=== PATIENT | male | born 1935 | race Caucasian/White ===

== ENCOUNTER → 2018-06-17 14:51 | Outpatient (CLI) | payer MEDICARE, SELFPAY ==
[2018-06-17 16:09] LABS: Absolute Neutrophil Count 4.2 X10^3/uL (2.0-7.7); Basophil# 0.02 X10^3/uL; Basophil% 0.3 % (0-1); Eosinophil# 0.09 X10^3/uL; Eosinophils% 1.3 % (0-5); Hematocrit 42.2 % (40-54); Hemoglobin 13.5 g/dl (13.0-16.5); Lymphocyte % 26.5 % (19-41); Mean Corpuscular Hgb 30.7 pg (27.0-32.0); Mean Corpuscular Volume 95.9 fL (80-94); Monocyte# 0.63 X10^3/uL; Monocyte% 9.3 % (0-10); Neutrophil # 4.24 X10^3/uL (2.7-7.7); Neutrophil % 62.6 % (47-70); Platelet Count 215 K/mm3 (150-450); RBC Distribution Width CV 12.8 % (11.6-14.6); RBC Distribution Width SD 44.6 fl (35.1-43.9); White Blood Count 6.8 K/mm3 (4.4-11.0)
[2018-06-17 16:13] LABS: POSITIVE COUNT NO; POSITIVE DIFFERENTIAL NO; POSITIVE MORPHOLOGY NO
[2018-06-17 16:25] LABS: Hemoglobin A1c 5.6 % (4.2-6.3)
[2018-06-17 16:26] LABS: Vitamin B12 646 pg/mL (211-911)
[2018-06-17 16:43] LABS: ALB/GLOB Ratio 0.9 RATIO (0.9-2.4); AST(SGOT) 18 U/L (15-37); Alanine Aminotransfer ALT/SGPT 20 U/L (16-61); Albumin, Serum 3.6 g/dL (3.2-5.0); Alkaline Phosphatase 65 U/L (45-117); Anion Gap 9 (5-15); BUN 17 mg/dL (7-18); BUN/Creat Ratio 18.7 RATIO (10-20); Calcium,Total 8.8 mg/dL (8.5-10.1); Chloride 105 mmol/L (98-107); Creatinine, Serum 0.91 mg/dL (0.70-1.30); EST Glomerular Filtration Rate 84 mL/min (>60); Est Glom Filt Rate - Afr Amer 102 mL/min (>60); Globulin 4.2 g/dL (2.2-4.2); Glucose 87 mg/dL (74-106); Magnesium 2.1 mg/dL (1.6-2.6); Potassium 4.1 mmol/L (3.5-5.1); Protein, Total 7.8 g/dL (6.4-8.2); Sodium Level 143 mmol/L (136-145); Thyroid Stim Hormone (TSH) 1.56 uIU/mL (0.358-3.74)
== END ==
LOC: MTLAB 14:55
PROVIDERS: Family Provider Family Medicine; PCP Family Medicine; Visit Provider Family Medicine
DX: I49.9 Cardiac arrhythmia, unspecified (principal); F03.90 Unspecified dementia, unspecified severity, without behavioral disturbance, psychotic disturbance, mood disturbance, and anxiety
CPT/HCPCS: 36415; 80053; 82607; 82746; 83036; 83735; 84443; 85025

== ENCOUNTER → 2018-09-16 14:09 | Outpatient (CLI) | payer MEDICARE, SELFPAY ==
[2018-09-16 15:41] LABS: Absolute Lymphocyte Count 1.87 X10^3/ul (0.83-4.51); Absolute Neutrophil Count 3.8 X10^3/uL (2.0-7.7); Basophil# 0.01 X10^3/uL; Basophil% 0.2 % (0-1); Eosinophil# 0.08 X10^3/uL; Eosinophils% 1.3 % (0-5); Hematocrit 42.4 % (40-54); Hemoglobin 13.8 g/dl (13.0-16.5); Lymphocyte # 1.87 X10^3/ul (4.0); Lymphocyte % 29.5 % (19-41); Mean Corp Hgb Conc 32.5 g/gl (32-36); Mean Corpuscular Hgb 31.4 pg (27.0-32.0); Mean Corpuscular Volume 96.6 fL (80-94); Mean Platelet Vol. 9.2 fl (6.2-12.0); Monocyte# 0.57 X10^3/uL; Neutrophil # 3.81 X10^3/uL (2.7-7.7); Platelet Count 246 K/mm3 (150-450); RBC Distribution Width CV 12.8 % (11.6-14.6); RBC Distribution Width SD 44.1 fl (35.1-43.9); Red Blood Count 4.39 M/mm3 (4.6-6.2); White Blood Count 6.3 K/mm3 (4.4-11.0)
[2018-09-16 15:52] LABS: Hemoglobin A1c 6.1 % (4.2-6.3)
[2018-09-16 16:01] LABS: Microalbumin:Creatinine Ratio 9.2 mg/g CRE (<30 mg/g CRE)
[2018-09-16 16:08] LABS: POSITIVE COUNT NO; POSITIVE DIFFERENTIAL NO; POSITIVE MORPHOLOGY NO
[2018-09-16 16:15] LABS: ALB/GLOB Ratio 0.9 RATIO (0.9-2.4); AST(SGOT) 17 U/L (15-37); Alanine Aminotransfer ALT/SGPT 17 U/L (16-61); Albumin, Serum 3.7 g/dL (3.2-5.0); Alkaline Phosphatase 73 U/L (45-117); Anion Gap 10 (5-15); BUN 15 mg/dL (7-18); BUN/Creat Ratio 17.4 RATIO (10-20); Calcium,Total 8.8 mg/dL (8.5-10.1); Chloride 103 mmol/L (98-107); Creatinine, Serum 0.86 mg/dL (0.70-1.30); EST Glomerular Filtration Rate 90 mL/min (>60); Est Glom Filt Rate - Afr Amer 108 mL/min (>60); Globulin 3.9 g/dL (2.2-4.2); Glucose 88 mg/dL (74-106); PSA,Total - Annual Screen 0.64 ng/mL (0.00-4.00); Potassium 4.3 mmol/L (3.5-5.1); Protein, Total 7.6 g/dL (6.4-8.2); Sodium Level 144 mmol/L (136-145); Thyroid Stim Hormone (TSH) 1.89 uIU/mL (0.358-3.74)
== END ==
LOC: MFPLAB 14:11
PROVIDERS: Family Provider Family Medicine; PCP Family Medicine; Visit Provider Family Medicine
DX: R35.1 Nocturia (principal); R63.1 Polydipsia; Z12.5 Encounter for screening for malignant neoplasm of prostate
CPT/HCPCS: 36415; 80053; 82043; 82570; 83036; 84153; 84443; 85025; G0103

== ENCOUNTER → 2019-02-21 10:47 | Outpatient (CLI) | payer MEDICARE, SELFPAY ==
--- NOTE | 2019-02-21 11:01 | MRI_ITS ---
We are attempting to reach an attending provider to discuss findings. An addendum with communication details will be sent when the communication is complete. STUDY: MRI BRAIN WITH AND WITHOUT CONTRAST REASON FOR EXAM: Male, 83 years old. HYDROCEPHALUS, MINI STROKES, DEMENTIA. TECHNIQUE: Standardized multiplanar fat and water weighted pulse sequences were obtained. 15 IV Dotarem was administered for the contrast portion of the examination. COMPARISON: May 24, 2016 CT of the head FINDINGS: There is moderate cerebral atrophy with widening of the extra-axial spaces and ventricular dilatation. There are multiple white matter hyperintensities, distributed throughout the deep white matter tracts of the cerebral hemispheres, consistent with moderate chronic white matter ischemic changes. There is a small area of restricted diffusion involving the left occipital lobe with drop of signal on ADC map, increased FLAIR signal and gyral enhacement, suggestive of subacute infarct. Normal bilateral basal ganglia. Normal thalami. There is no extra-axial fluid accumulation. Normal flow voids within the major intracranial circulation suggesting patency by spin echo criteria. Normal venous enhancement. There is no enhancing intra-axial or extra-axial abnormality. Normal sella turcica, pituitary gland, infundibular stalk, optic chiasm and hypothalamus. Normal tectal plate and pineal gland. There are chronic white matter ischemic changes of the roland. The midbrain and medulla are otherwise normal. Normal cerebellum. Normal basal cisterns. MRI/Brain W/WO Contrast IMPRESSION: Subacute left occipital infarct. Moderate involutional changes. Electronically Signed: River Flynn MD at 14:22 EDT Tel , Service support ,
== END ==
PROVIDERS: Family Provider Family Medicine; PCP Family Medicine; Referring Provider Psychiatry & Neurology Neurology; Visit Provider Psychiatry & Neurology Neurology
DX: G91.0 Communicating hydrocephalus (principal)
CPT/HCPCS: 70553; A9575

== ENCOUNTER 2019-04-15 01:08 | Emergency (ER) | payer MEDICARE, SELFPAY ==
[2019-04-15] VITALS (12 sets, daily range): BP systolic 115–170; BP diastolic 80–100; PULSE 72–111; RESP 16–20; TEMP 36.6; O2SAT 92–98; BMI 25.7
--- NOTE | 2019-04-15 01:23 | RAD_ITS ---
STUDY: X-RAY CHEST REASON FOR EXAM: Male, 83 years old. Confusion TECHNIQUE: Single AP portable view of the chest. COMPARISON: None. FINDINGS: The lungs are clear and expanded. There is no demonstrated pleural abnormality. Normal size heart. Normal mediastinum and david. Normal visualized pulmonary arteries. There is atherosclerotic calcification of the aortic arch with tortuosity. Normal visualized thoracic spine. There is degenerative osteoarthritis of the bilateral shoulders. There is no demonstrated abnormality of the visualized soft tissue structures of the upper abdomen. RAD/Chest 1 View (Portable) IMPRESSION: Degenerative changes, as described above. No demonstrated acute cardiopulmonary process. Electronically Signed: Cyril Hunter, at 2:32 EDT Tel , Service support ,
--- NOTE | 2019-04-15 01:23 | CT_ITS ---
STUDY: CT BRAIN WITHOUT CONTRAST REASON FOR EXAM: Male, 83 years old. Confusion RADIATION DOSAGE (If Supplied By Facility): CTDIvol = ( 443.99 ) mGy, DLP = ( 762.36 ) mGycm TECHNIQUE: Transaxial CT imaging of the brain was performed without administration of intravenous contrast material. Individualized dose optimization techniques were used for this CT. COMPARISON: No relevant priors. FINDINGS: Normal soft tissue structures. Normal calvarium. There is mild cerebral atrophy with widening of the extra-axial spaces and ventricular dilatation. There are areas of decreased attenuation within the white matter tracts of the supratentorial brain, consistent with microvascular disease changes. Normal basal ganglia and thalami. Normal brainstem. Normal cerebellum. There is no intracranial hemorrhage. There are no findings of an acute ischemic infarction. Normal visualized paranasal sinuses. CT/Brain/Head without Contrast IMPRESSION: Chronic involutional changes of the brain. Electronically Signed: Cyril Hunter, at 2:28 EDT Tel , Service support ,
--- NOTE | 2019-04-15 01:23 | EKG12_ITS ---
Test Reason : MHC Blood Pressure : / mmHG Vent. Rate : 101 BPM Atrial Rate : 441 BPM P-R Int : 000 ms QRS Dur : 076 ms QT Int : 300 ms P-R-T Axes : 000 035 004 degrees QTc Int : 389 ms Atrial fibrillation with rapid ventricular response Abnormal ECG Confirmed by DIANA RPO ([id number]), editorial specialist ANUP SHEPPARD ([id number]) on 04/17/2019 1:43:05 PM Referred By: JOSÉ LUIS Confirmed By:DIANA PRO
[2019-04-15 01:56] LABS: Absolute Lymphocyte Count 1.98 X10^3/ul (0.83-4.51); Absolute Neutrophil Count 5.4 X10^3/uL (2.0-7.7); Basophil# 0.02 X10^3/uL; Basophil% 0.2 % (0-1); Eosinophil# 0.09 X10^3/uL; Eosinophils% 1.1 % (0-5); Hematocrit 42.3 % (40-54); Lymphocyte # 1.98 X10^3/ul (4.0); Lymphocyte % 23.8 % (19-41); Mean Corp Hgb Conc 33.1 g/gl (32-36); Mean Corpuscular Hgb 31.4 pg (27.0-32.0); Mean Corpuscular Volume 94.8 fL (80-94); Mean Platelet Vol. 8.9 fl (6.2-12.0); Monocyte# 0.83 X10^3/uL; Neutrophil # 5.39 X10^3/uL (2.7-7.7); Neutrophil % 64.9 % (47-70); Platelet Count 257 K/mm3 (150-450); Red Blood Count 4.46 M/mm3 (4.6-6.2); White Blood Count 8.3 K/mm3 (4.4-11.0)
[2019-04-15 01:57] LABS: POSITIVE COUNT NO; POSITIVE DIFFERENTIAL NO; POSITIVE MORPHOLOGY NO
[2019-04-15 02:13] LABS: Anion Gap 4 (5-15); BUN 13 mg/dL (7-18); BUN/Creat Ratio 14.5 RATIO (10-20); Calcium,Total 8.8 mg/dL (8.5-10.1); Chloride 105 mmol/L (98-107); EST Glomerular Filtration Rate 86 mL/min (>60); Est Glom Filt Rate - Afr Amer 104 mL/min (>60); Estimated Creatinine Clearance 65.07 ml/min; Glucose 98 mg/dL (74-106); Potassium 3.8 mmol/L (3.5-5.1); Sodium Level 139 mmol/L (136-145)
[2019-04-15 03:40] LABS: Mucous, Urine 0 SEEN /hpf (<or=2+); Squamous Epithelial Cells - UA 0 SEEN /hpf (0-5); White Blood Cells 0 SEEN /hpf (0-5)
[2019-04-15 03:41] LABS: Color, Urine Yellow (Yellow); Glucose, Dipstick Normal (Normal); Ketone-Dipstick Negative (Negative); Leukocyte Esterase-Dipstick Negative /ul (Negative); Nitrite-Dipstick Negative (Negative); Occult Blood-Urine 25 /ul (Negative); Protein-Dipstick Negative (Negative); Urine Bilirubin Dipstick Negative (Negative); Urine Clarity Clear (Clear); Urine Urobilinogen Normal (Normal); Urine pH 6.5 (5.0 - 8.0)
[2019-04-15 04:00] LABS: Bacteria RARE /hpf (None Seen)
[2019-04-15 04:01] LABS: Red Blood Cells-Urine 0-5 SEEN /hpf (0-5)
[2019-04-15 04:05] LABS: Amphetamine Urine VISTA NEGATIVE (<1000 ng/mL); Barbiturate Urine VISTA NEGATIVE (< 200 ng/mL); Benzodiazepine Urine VISTA NEGATIVE (< 200 ng/mL); Cocaine Urine VISTA NEGATIVE (< 300 ng/mL); Ecstacy Urine VISTA NEGATIVE (< 500 ng/mL); Methadone Urine VISTA NEGATIVE (< 300 ng/mL); PCP Urine VISTA NEGATIVE (< 25 ng/mL); THC Urine VISTA NEGATIVE (< 50 ng/mL); Vista UDS pH Range 7
--- NOTE | 2019-04-15 04:11 | ED.RN ---
CALLED [facility] TO SEE THIS PT, REFUGIO WILL BE IN
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
--- NOTE | 2019-04-15 04:38 | ED.RN ---
[facility] ON SITE
--- NOTE | 2019-04-15 07:19 | NURSING ---
CAR MENJIVAR, CALLED. FAXED PAPERWORK TO [facility]. THEY WILL CALL HIM.
--- NOTE | 2019-04-15 08:50 | ED.RN ---
pt remains polite,cooperative. pt states just sleepy. still awaiting word from crisis regarding placement
--- NOTE | 2019-04-15 11:15 | EKG12_ITS ---
Test Reason : REPEAT Blood Pressure : / mmHG Vent. Rate : 090 BPM Atrial Rate : 416 BPM P-R Int : 000 ms QRS Dur : 080 ms QT Int : 362 ms P-R-T Axes : 000 055 023 degrees QTc Int : 442 ms Atrial fibrillation Low voltage QRS Abnormal ECG Confirmed by DIANA PRO ([id number]), legal editor ANUP SHEPPARD ([id number]) on 04/17/2019 1:47:04 PM Referred By: SAM Confirmed By:DIANA PRO
--- NOTE | 2019-04-15 11:21 | NURSING ---
FAXED NEW EKG, VITALS AND MED LIST TO [facility]
--- NOTE | 2019-04-15 11:32 | ED.RN ---
requested info faxed to [facility]
--- NOTE | 2019-04-15 15:38 | ED.RN ---
[facility] called again to update status. [facility] medical dr remains reviewing the chart
--- NOTE | 2019-04-15 16:13 | NURSING ---
PER [facility], FAXED PINK SLIP AND T SHEET WITH DIAGNOSIS
--- NOTE | 2019-04-15 16:40 | NURSING ---
ACCEPTED AT [facility] JIMENE[facility] ROM 102 BED 2 NURSE TO NURSE [phone]
--- NOTE | 2019-04-15 16:46 | NURSING ---
CALLED [facility] FOR TRANSPORT. ETA IS ABOUT 1800 OR 1830
[2019-04-15] MEDS: Imipramine HCl 25 MG Tablet 50 MG PO (17:02)
[2019-04-15] MEDS: Aspirin E.C. 325 MG Tablet PO (17:02)
--- NOTE | 2019-04-15 18:09 | ED.RN ---
THIS RN CALLED PT LACEY TO INFORM OF TRANSFER TO [facility].
== END 2019-04-15 18:14 ==
PROVIDERS: Emergency Medicine; Emergency Provider Emergency Medicine; Family Provider Family Medicine; PCP Family Medicine
DX: F03.91 Unspecified dementia, unspecified severity, with behavioral disturbance (principal); Z86.73 Personal history of transient ischemic attack (TIA), and cerebral infarction without residual deficits; Z79.899 Other long term (current) drug therapy
CPT/HCPCS: 36415; 70450; 71045; 80048; 80307; 80320; 81001; 84484; 85025; 93005; 99285; G0480

== ENCOUNTER → 2019-05-06 16:44 | Outpatient (CLI) | payer MEDICARE, SELFPAY ==
[2019-04-15 01:09] VITALS: BMI 25.7
[2019-05-06 17:19] LABS: Absolute Lymphocyte Count 1.74 X10^3/uL (0.83-4.51); Absolute Neutrophil Count 3.7 X10^3/uL (2.0-7.7); Basophil# 0.03 X10^3/uL; Basophil% 0.5 % (0-1); Eosinophil# 0.11 X10^3/uL; Eosinophils% 1.7 % (0-5); Hematocrit 41.8 % (40-54); Hemoglobin 13.4 g/dL (13.0-16.5); Lymphocyte # 1.74 X10^3/ul (4.0); Lymphocyte % 27.7 % (19-41); Mean Corp Hgb Conc 32.1 g/dL (32-36); Mean Corpuscular Hgb 31.2 pg (27.0-32.0); Mean Corpuscular Volume 97.2 fL (80-94); Mean Platelet Vol. 8.7 fl (6.2-12.0); Monocyte# 0.71 X10^3/uL; Monocyte% 11.3 % (0-10); NRBC Flagged by Analyzer 0 % (0-5); Neutrophil # 3.69 X10^3/uL (2.7-7.7); Neutrophil % 58.6 % (47-70); Platelet Count 244 K/mm3 (150-450); RBC Distribution Width SD 46.7 fl (35.1-43.9); White Blood Count 6.3 K/mm3 (4.4-11.0)
[2019-05-06 18:22] LABS: ALB/GLOB Ratio 0.9 RATIO (0.9-2.4); AST(SGOT) 15 U/L (15-37); Alanine Aminotransfer ALT/SGPT 20 U/L (16-61); Albumin, Serum 3.6 g/dL (3.2-5.0); Alkaline Phosphatase 71 U/L (45-117); Anion Gap 6 (5-15); BUN 13 mg/dL (7-18); BUN/Creat Ratio 14.2 RATIO (10-20); Calcium,Total 8.3 mg/dL (8.5-10.1); Chloride 106 mmol/L (98-107); Creatinine, Serum 0.92 mg/dL (0.70-1.30); EST Glomerular Filtration Rate 84 mL/min (>60); Est Glom Filt Rate - Afr Amer 101 mL/min (>60); Glucose 82 mg/dL (74-106); Potassium 3.7 mmol/L (3.5-5.1); Protein, Total 7.6 g/dL (6.4-8.2); Sodium Level 143 mmol/L (136-145); Thyroid Stim Hormone (TSH) 1.51 uIU/mL (0.358-3.74)
== END ==
PROVIDERS: Family Provider Family Medicine; PCP Family Medicine; Visit Provider Family Medicine Geriatric Medicine
DX: I10 Essential (primary) hypertension (principal); N39.0 Urinary tract infection, site not specified
CPT/HCPCS: 36415; 80053; 84443; 85025; 87086; 87088

== ENCOUNTER 2019-05-14 22:47 | Emergency (ER) | payer MEDICARE, SELFPAY ==
[2019-04-15 01:09] VITALS: BMI 25.7
[2019-05-14 22:50] VITALS: BP 117/91; PULSE 101; RESP 16; TEMP 37.3; O2SAT 98; BMI 26.2
--- NOTE | 2019-05-14 23:02 | RAD_ITS ---
STUDY: X-RAY CHEST REASON FOR EXAM: Male, 83 years old. Confusion. TECHNIQUE: Frontal and lateral views of the chest. COMPARISON: April 15, 2019 FINDINGS: The lungs are hyperinflated. There is no new focal consolidation. Normal size heart. Normal mediastinum and david. Normal visualized pulmonary arteries. Normal visualized aortic arch and descending thoracic aorta. Normal visualized thoracic spine. Normal visualized ribs, clavicles, and shoulders. There is no demonstrated abnormality of the visualized soft tissue structures of the upper abdomen. RAD/Chest PA and Lateral IMPRESSION: Hyperinflated lungs may reflect underlying COPD. Electronically Signed: Yin Gutierrez MD at 23:36 EDT Tel , Service support ,
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
[2019-05-14 23:24] LABS: Absolute Lymphocyte Count 1.99 X10^3/uL (0.83-4.51); Basophil# 0.04 X10^3/uL; Basophil% 0.6 % (0-1); Eosinophil# 0.15 X10^3/uL; Eosinophils% 2.2 % (0-5); Hematocrit 40.1 % (40-54); Hemoglobin 13.1 g/dL (13.0-16.5); Lymphocyte # 1.99 X10^3/ul (4.0); Lymphocyte % 29.4 % (19-41); Mean Corp Hgb Conc 32.7 g/dL (32-36); Mean Corpuscular Hgb 31.7 pg (27.0-32.0); Mean Corpuscular Volume 97.1 fL (80-94); Monocyte# 0.64 X10^3/uL; Monocyte% 9.5 % (0-10); NRBC Flagged by Analyzer 0 % (0-5); Neutrophil # 3.95 X10^3/uL (2.7-7.7); Neutrophil % 58.3 % (47-70); Platelet Count 209 K/mm3 (150-450); RBC Distribution Width CV 12.7 % (11.6-14.6); RBC Distribution Width SD 45.3 fl (35.1-43.9); Red Blood Count 4.13 M/mm3 (4.6-6.2); White Blood Count 6.8 K/mm3 (4.4-11.0)
[2019-05-14 23:48] LABS: ALB/GLOB Ratio 0.9 RATIO (0.9-2.4); AST(SGOT) 16 U/L (15-37); Alanine Aminotransfer ALT/SGPT 14 U/L (16-61); Albumin, Serum 3.5 g/dL (3.2-5.0); Alkaline Phosphatase 86 U/L (45-117); Anion Gap 5 (5-15); BUN 15 mg/dL (7-18); BUN/Creat Ratio 16.6 RATIO (10-20); Calcium,Total 8.5 mg/dL (8.5-10.1); Chloride 107 mmol/L (98-107); EST Glomerular Filtration Rate 85 mL/min (>60); Est Glom Filt Rate - Afr Amer 103 mL/min (>60); Estimated Creatinine Clearance 65.07 ml/min; Globulin 4.1 g/dL (2.2-4.2); Glucose 100 mg/dL (74-106); Protein, Total 7.6 g/dL (6.4-8.2); Sodium Level 143 mmol/L (136-145); Thyroid Stim Hormone (TSH) 2.33 uIU/mL (0.358-3.74)
[2019-05-14 23:51] LABS: Vitamin B12 531 pg/mL (211-911)
[2019-05-15 00:35] LABS: Amphetamine Urine VISTA NEGATIVE (<1000 ng/mL); Barbiturate Urine VISTA NEGATIVE (< 200 ng/mL); Benzodiazepine Urine VISTA NEGATIVE (< 200 ng/mL); Cocaine Urine VISTA NEGATIVE (< 300 ng/mL); Ecstacy Urine VISTA NEGATIVE (< 500 ng/mL); Methadone Urine VISTA NEGATIVE (< 300 ng/mL); PCP Urine VISTA NEGATIVE (< 25 ng/mL); THC Urine VISTA NEGATIVE (< 50 ng/mL); Vista UDS pH Range 6
[2019-05-15 00:43] LABS: Mucous, Urine 0 SEEN /hpf (<or=2+); White Blood Cells 0 SEEN /hpf (0-5)
[2019-05-15 00:44] LABS: Color, Urine Yellow (Yellow); Glucose, Dipstick Normal (Normal); Ketone-Dipstick 5 mg/dl (Negative); Leukocyte Esterase-Dipstick Negative /ul (Negative); Nitrite-Dipstick Negative (Negative); Occult Blood-Urine 25 /ul (Negative); Protein-Dipstick Negative (Negative); Specific Gravity, Urine 1.015 (1.002-1.030); Urine Bilirubin Dipstick Negative (Negative); Urine Clarity Clear (Clear); Urine Urobilinogen Normal (Normal)
[2019-05-15 00:50] LABS: Bacteria RARE /hpf (None Seen); Red Blood Cells-Urine 0-5 SEEN /hpf (0-5); Squamous Epithelial Cells - UA 0-5 SEEN /hpf (0-5)
[2019-05-15 00:51] VITALS: RESP 16
--- NOTE | 2019-05-15 01:12 | ED.RN ---
[facility]ED [facility] & NOTIFIED THE TREATMENT MANAGER THAT THIS PT NEEDS TO BE EVALUATED BY [facility].
--- NOTE | 2019-05-15 01:14 | ED.RN ---
TRENT FROM [facility] IS ON HER WAY TO SEE THIS PT.
--- NOTE | 2019-05-15 01:43 | ED.RN ---
TRENT FROM [facility] IS HERE EVALUATING THIS PT.
[2019-05-15 01:54] VITALS: RESP 12
[2019-05-15 02:19] VITALS: RESP 16
[2019-05-15] MEDS: MELATONIN 10 MG TABLET 5 MG PO (03:05)
[2019-05-15] MEDS: Finasteride 5 MG Tablet PO (03:06)
[2019-05-15] MEDS: OLANZapine 2.5 MG Tablet 5 MG PO (03:06)
[2019-05-15 03:11] VITALS: BP 118/72; PULSE 77; RESP 16; O2SAT 100
[2019-05-15 03:26] VITALS: RESP 16
[2019-05-15 06:54] VITALS: BP 124/95; PULSE 98; RESP 18; O2SAT 97
--- NOTE | 2019-05-15 07:05 | ED.RN ---
patient has been accepted to [facility] at this time
== END 2019-05-15 08:55 ==
PROVIDERS: Emergency Provider Emergency Medicine; Family Provider Family Medicine; PCP Family Medicine
DX: G30.9 Alzheimer's disease, unspecified (principal); F02.81 Dementia in other diseases classified elsewhere, unspecified severity, with behavioral disturbance; Z87.891 Personal history of nicotine dependence; Z79.899 Other long term (current) drug therapy
CPT/HCPCS: 36415; 71046; 80053; 80307; 80320; 81001; 82607; 84443; 85025; 99285; G0480

== ENCOUNTER 2019-06-17 13:03 | Emergency (ER) | payer MEDICARE, SELFPAY ==
[2019-06-17 13:04] VITALS: BP 130/78; PULSE 77; RESP 16; TEMP 36.3; O2SAT 97; BMI 25.5
--- NOTE | 2019-06-17 13:17 | CT_ITS ---
STUDY: CT BRAIN WITHOUT CONTRAST REASON FOR EXAM: Male, 83 years old. Confusion/dementia. RADIATION DOSAGE (If Supplied By Facility): CTDIvol = ( 60.81 ) mGy, DLP = ( 1021.47 ) mGycm TECHNIQUE: Transaxial CT imaging of the brain was performed without administration of intravenous contrast material. Individualized dose optimization techniques were used for this CT. COMPARISON: Comparison is made with prior study dated April 15, 2019. FINDINGS: Normal soft tissue structures. Normal calvarium. There is moderate cerebral atrophy with widening of the extra-axial spaces and ventricular dilatation. There are areas of decreased attenuation within the white matter tracts of the supratentorial brain, consistent with microvascular disease changes. Normal basal ganglia and thalami. Normal brainstem. Stable encephalomalacia in the posterior medial aspect of the left cerebellar hemisphere. There is no intracranial hemorrhage. There are no findings of an acute ischemic infarction. Atherosclerotic calcification of the vertebral arteries and cavernous portions of the internal carotid arteries bilaterally. Normal visualized paranasal sinuses. CT/Brain/Head without Contrast IMPRESSION: Chronic involutional changes of the brain. Electronically Signed: Will Lincoln, at 14:40 EDT , Service support ,
--- NOTE | 2019-06-17 13:17 | EKG12_ITS ---
Test Reason : WEAKNESS Blood Pressure : / mmHG Vent. Rate : 079 BPM Atrial Rate : 394 BPM P-R Int : 000 ms QRS Dur : 076 ms QT Int : 372 ms P-R-T Axes : 000 031 011 degrees QTc Int : 426 ms Atrial fibrillation Abnormal ECG Confirmed by DIANA PRO ([id number]), magazine editor JEREMY HSIEH ([id number]) on 06/23/2019 2:25:23 PM Referred By: LADONNA Confirmed By:DIANA PRO
--- NOTE | 2019-06-17 13:20 | ED.DCSUM_ITS ---
History of Present Illness Chief Complaint: Weakness Informant: Patient, Family Limited by: Dementia Onset: Days Context: Gradual Onset Timing: Continuous Current Severity: Moderate Maximum Severity: Moderate Narrative: The patient presents to the emergency department with generalized weakness, increasing confusion, and being more listless. The patient was recently admitted to the [facility]. While there, he was placed on new medications. He recently had his Depakote medication increased about 5 days ago. Family states that over the past 48 hours, he has been more weak, more confused, and very unsteady on his feet. They do state is more of a gradual onset. They deny any trauma. He has not had fever or chills. There is been no other recent medication change. He does have some home health and the nurse was concerned because he cannot stand which normally he can ambulate without assistance. He was brought in for further evaluation. Prior similar symptoms: Yes Recent Illness/Hospitalization: Yes Past Medical History - Allergies and Home Meds Allergies/Adverse Reactions: Allergies No Known Allergies Allergy (Verified 06/17/19 13:04) Primary Care Physician: Juan Story MD [Primary Care Provider] - Prior records reviewed: Yes Past Medical History: - - Dementia with behavioral disturbance Surgical History: Lives: With Family Smoking Status: Never smoker Review of Systems ROS: Unable to Obtain Physical Exam Vital Signs/Narrative: Vital Signs Temp Pulse Resp BP Pulse Ox 06/17/19 13:04 97.4 F L 77 16 130/78 H 97 Inital Vital Signs reviewed: Yes General: Well nourished, Well developed, No Acute Distress Head: Normocephalic, Atraumatic Eyes: Perrl, EOMI ENT: Moist mucous membranes, No rhinorrhea Neck: Supple, Nontender Cardiovascular: Regular rate, Regular rhythm, No murmurs Respiratory: No distress, CTA bilaterally, Chest nontender Abdomen: Soft, Nontender, Nondistended, Normal bowel sounds Back: Nontender, Normal Inspection Extremities: Nontender, No edema Skin: Normal color, No rash Neurological: Cranial nerves II-XII grossly intact, Normal Sensation, Disoriented, Inattentive, Weakness - Generalized and diffuse, no focal weakness Psychological: Normal affect, Normal Mood Diagnostic/Tx/Re-eval Clinical Impression(s) from Imaging Studies Brain CT 06/17/19 13:17 IMPRESSION: Chronic involutional changes of the brain. Electronically Signed: Will Lincoln, at 14:40 EDT , Service support , Abnormal Lab Results 06/17/19 06/17/19 06/17/19 13:30 13:30 13:30 WBC 8.3 RBC 4.14 L Hgb 13.1 Hct 40.0 MCV 96.6 H MCH 31.6 MCHC 32.8 RDW Std Deviation 46.3 H RDW Coeff of Darby 13.0 Plt Count 183 MPV 8.8 Immature Gran % (Auto) 0.200 Neut % (Auto) 68.8 Lymph % (Auto) 19.8 [place] % (Auto) 10.2 H Eos % (Auto) 0.8 Baso % (Auto) 0.2 Absolute Neuts (auto) 5.7 Absolute Lymphs (auto) 1.65 Nucleated RBC % 0 Sodium 146 H Potassium 4.0 Chloride 109 H Carbon Dioxide 31.0 Anion Gap 6 BUN 15 Creatinine 0.94 Estim Creat Clear Calc 62.30 Est GFR (MDRD) Af Amer 98 Est GFR (MDRD) Non-Af 81 BUN/Creatinine Ratio 15.9 Glucose 85 Calcium 8.3 L Total Bilirubin 0.40 AST 35 ALT 21 Alkaline Phosphatase 59 Ammonia Total Protein 7.0 Albumin 3.2 Globulin 3.8 Albumin/Globulin Ratio 0.8 L Urine Color Urine Clarity Urine pH Ur Specific [place] Urine Protein Urine Glucose (UA) Urine Ketones Urine Occult Blood Urine Nitrite Urine Bilirubin Urine Urobilinogen Ur Leukocyte Esterase Urine RBC Urine WBC Ur Squamous Epith Cells Urine Bacteria Urine Mucus Valproic Acid 59 06/17/19 06/17/19 13:30 14:55 WBC RBC Hgb Hct MCV MCH MCHC RDW Std Deviation RDW Coeff of Darby Plt Count MPV Immature Gran % (Auto) Neut % (Auto) Lymph % (Auto) [place] % (Auto) Eos % (Auto) Baso % (Auto) Absolute Neuts (auto) Absolute Lymphs (auto) Nucleated RBC % Sodium Potassium Chloride Carbon Dioxide Anion Gap BUN Creatinine Estim Creat Clear Calc Est GFR (MDRD) Af Amer Est GFR (MDRD) Non-Af BUN/Creatinine Ratio Glucose Calcium Total Bilirubin AST ALT Alkaline Phosphatase Ammonia 33.0 H Total Protein Albumin Globulin Albumin/Globulin Ratio Urine Color Yellow Urine Clarity Sl. Cloudy Urine pH 6.5 Ur Specific [place] 1.015 Urine Protein Negative Urine Glucose (UA) Normal Urine Ketones 5 H Urine Occult Blood 10 H Urine Nitrite Negative Urine Bilirubin Negative Urine Urobilinogen Normal Ur Leukocyte Esterase Negative Urine RBC 0-5 SEEN Urine WBC 0-5 SEEN Ur Squamous Epith Cells 0 SEEN Urine Bacteria 0 SEEN Urine Mucus 0 SEEN Valproic Acid - Medical Decision Making The patient presents with generalized weakness. EKG was obtained. It demonstrated atrial fibrillation which patient has a history of. Noncontrast head CT was within normal limits. There is no mass, significant hydrocephalus, or evidence of midline shift. Screening labs including Depakote level were unremarkable. The patient was observed. Within 2 hours, he was back to his ba dany. His urine shows no evidence of infection. My suspicion is that this is more advancement of his dementia rather than an acute metabolic process. The wants to take him home and I feel this is reasonable. I was able to have social work talk to the patient to see if there was more resources to help at home. Impression 1. Generalized weakness-resolved ED Disposition - Plan for ED Patient: Instructions: WEAKNESS, Unk Cause Referrals: Juan Story MD [Primary Care Provider] -
[2019-06-17] MEDS: 0.9% Normal Saline 1,000 ML 1000 ML IV (13:37)
[2019-06-17 13:38] LABS: Absolute Lymphocyte Count 1.65 X10^3/uL (0.83-4.51); Absolute Neutrophil Count 5.7 X10^3/uL (2.0-7.7); Basophil# 0.02 X10^3/uL; Basophil% 0.2 % (0-1); Eosinophil# 0.07 X10^3/uL; Eosinophils% 0.8 % (0-5); Hemoglobin 13.1 g/dL (13.0-16.5); Lymphocyte # 1.65 X10^3/ul (4.0); Lymphocyte % 19.8 % (19-41); Mean Corp Hgb Conc 32.8 g/dL (32-36); Mean Corpuscular Hgb 31.6 pg (27.0-32.0); Mean Corpuscular Volume 96.6 fL (80-94); Mean Platelet Vol. 8.8 fl (6.2-12.0); Monocyte# 0.85 X10^3/uL; Monocyte% 10.2 % (0-10); NRBC Flagged by Analyzer 0 % (0-5); Neutrophil # 5.71 X10^3/uL (2.7-7.7); Neutrophil % 68.8 % (47-70); Platelet Count 183 K/mm3 (150-450); RBC Distribution Width SD 46.3 fl (35.1-43.9); Red Blood Count 4.14 M/mm3 (4.6-6.2); White Blood Count 8.3 K/mm3 (4.4-11.0)
[2019-06-17 13:55] LABS: ALB/GLOB Ratio 0.8 RATIO (0.9-2.4); AST(SGOT) 35 U/L (15-37); Alanine Aminotransfer ALT/SGPT 21 U/L (16-61); Albumin, Serum 3.2 g/dL (3.2-5.0); Alkaline Phosphatase 59 U/L (45-117); Anion Gap 6 (5-15); BUN 15 mg/dL (7-18); BUN/Creat Ratio 15.9 RATIO (10-20); Calcium,Total 8.3 mg/dL (8.5-10.1); Chloride 109 mmol/L (98-107); Creatinine, Serum 0.94 mg/dL (0.70-1.30); EST Glomerular Filtration Rate 81 mL/min (>60); Est Glom Filt Rate - Afr Amer 98 mL/min (>60); Globulin 3.8 g/dL (2.2-4.2); Glucose 85 mg/dL (74-106); Sodium Level 146 mmol/L (136-145)
[2019-06-17 14:04] VITALS: BP 115/93; PULSE 74; RESP 17; O2SAT 98
[2019-06-17 14:39] LABS: Valproic Acid (Depakene) Level 59 ug/mL (50-100)
[2019-06-17 15:00] VITALS: BP 126/59; PULSE 80; RESP 16; O2SAT 99
[2019-06-17 15:03] LABS: Bacteria 0 SEEN /hpf (None Seen); Mucous, Urine 0 SEEN /hpf (<or=2+); Squamous Epithelial Cells - UA 0 SEEN /hpf (0-5)
[2019-06-17 15:09] LABS: Color, Urine Yellow (Yellow); Glucose, Dipstick Normal (Normal); Ketone-Dipstick 5 mg/dl (Negative); Leukocyte Esterase-Dipstick Negative /ul (Negative); Nitrite-Dipstick Negative (Negative); Occult Blood-Urine 10 /ul (Negative); Protein-Dipstick Negative (Negative); Specific Gravity, Urine 1.015 (1.002-1.030); Urine Bilirubin Dipstick Negative (Negative); Urine Clarity Sl. Cloudy (Clear); Urine Urobilinogen Normal (Normal); Urine pH 6.5 (5.0 - 8.0)
[2019-06-17 15:33] LABS: Red Blood Cells-Urine 0-5 SEEN /hpf (0-5); White Blood Cells 0-5 SEEN /hpf (0-5)
--- NOTE | 2019-06-17 16:04 | CM.ED ---
Social Work Consult: Resources Informant: Dr. Segovia Chief Complaint: I need support at home per patient spouse, Indira. Patient is diagnosed with dementia. Indira is primary ambulatory care coordinator. Living Situation: Patient lives with spouse, Indira in a 1st floor set up. Relationship status/social history: Patient to Indira, main ambulatory care coordinator. Indira provides 24hr supervision and care for patient. ADL's: Patient needs fluctuating assistance per Indira. Indira stating that patient was mowing yard 3 weeks ago but over the past few days patient has been unable to do anything. Supports/Resources: None. Patient did have an aide coming into the home some but Indira discontinued the service due to cost. Per Indira aide was charging $25/hour and that is ridiculous. Indira stating to have applied for [employer] and Medicaid in the past but patient does not qualify financially. Indira stating to be able to afford aide services at a reasonable daniels. Mental status Exam: Patient oriented to self. Patient resting in bed during assessment and did not participate verbally. Attempted to speak directly to patient, patient appearing to not be interested in speaking to this adoption social worker. Assessment: Met with patient and patient spouse in room. Introduced self as well as adoption social worker role. Indira agreeable to meet with this adoption social worker. Indira stating I am getting worn out. Spoke with Indira about community resources and supports for Indira/Patient. Indira stating to not be interested in assisted living or correction at this time. This adoption social worker providing Indira with information about respite stays in assisted living, [place] and list of private duty aides. Indira provided with list of assisted livings in the [facility] as well. All questions answered. PLAN: Patient to discharge to home with spouse. Elton PAVON, AWA
[2019-06-17 16:22] VITALS: BP 145/79; PULSE 83; RESP 17; O2SAT 98
== END 2019-06-17 16:22 | disposition home or self-care (01) ==
LOC: ED 13:23
PROVIDERS: Emergency Provider Emergency Medicine; Family Provider Family Medicine; PCP Family Medicine
DX: R53.1 Weakness (principal); F03.91 Unspecified dementia, unspecified severity, with behavioral disturbance
CPT/HCPCS: 70450; 80053; 80164; 81001; 82140; 85025; 93005; 96360; 96361; 99283; J7030; A4216

== ENCOUNTER 2019-08-19 14:17 | Inpatient (IN) | payer MEDICARE, SELFPAY ==
[2019-08-19] VITALS (11 sets, daily range): BP systolic 91–127; BP diastolic 50–82; PULSE 56–88; RESP 10–20; TEMP 36.7–36.8; O2SAT 96–99; BMI 25.7; BMI 24.7
--- NOTE | 2019-08-19 14:24 | CT_ITS ---
STUDY: CT BRAIN WITHOUT CONTRAST REASON FOR EXAM: Male, 83 years old. History of stroke. RADIATION DOSAGE (If Supplied By Facility): CTDIvol = ( 44.99 ) mGy, DLP = ( 812.98 ) mGycm TECHNIQUE: Transaxial CT imaging of the brain was performed without administration of intravenous contrast material. Individualized dose optimization techniques were used for this CT. COMPARISON: Comparison is made with prior study dated June 17, 2019. FINDINGS: Normal soft tissue structures. Normal calvarium. There is moderate cerebral atrophy with widening of the extra-axial spaces and ventricular dilatation. There are areas of decreased attenuation within the white matter tracts of the supratentorial brain, consistent with microvascular disease changes. Normal basal ganglia and thalami. Normal brainstem. Focal encephalomalacia in the medial aspect of the right cerebellar hemisphere in keeping with an old left cerebellar infarct. There is no intracranial hemorrhage. There are no findings of an acute ischemic infarction. Atherosclerotic calcification of the cavernous portions of the internal carotid arteries as well as the vertebral arteries. Normal visualized paranasal sinuses. CT/Brain/Head without Contrast IMPRESSION: Chronic involutional changes of the brain. No acute abnormality is seen. N.B. : The above information has been verbally conveyed by Will Lincoln to Dr Arreola on 08/19/2019 14:41:24 (ET). Electronically Signed: Will Lincoln, at 14:42 EST , Service support ,
--- NOTE | 2019-08-19 14:24 | ED.RN ---
PT ARRIVED VIA PRIVATE CAR, ASSISTED OUT OF CAR INTO WHEELCHAIR, BROUGHT IN TO [facility]. FAMILY STATES PT WAS BRIEFLY UNRESPONSIVE AT APPROX 1200 WHEN THEY WENT IN TO [place]. STATE HE THEN HAD LEFT SIDED FACIAL DROOP, SLURRED SPEECH, GENERALIZED WEAKNESS, MORE CONFUSION, NOT ABLE TO SEE RIGHT. PT HAS HX OF DEMENTIA, ORIENTATION COMES AND GOES PER SPOUSE. HASH SLINGER NOTIFIED, PT TAKEN DIRECTLY TO CT FROM [facility].
[2019-08-19 14:36] LABS: Bedside Glucose 109 mg/dL (70-110)
--- NOTE | 2019-08-19 14:36 | RAD_ITS ---
STUDY: X-RAY CHEST REASON FOR EXAM: Male, 83 years old. Stroke. Confusion. TECHNIQUE: Single AP portable view of the chest. COMPARISON: Comparison is made with prior study dated May 14, 2019. FINDINGS: EKG electrodes are seen. Stable increased markings at the right lung base. Hyperinflation. There is no demonstrated pleural abnormality. Normal size heart. Normal mediastinum and david. Normal visualized pulmonary arteries. There is atherosclerotic calcification of the aortic arch with tortuosity. There are diffuse degenerative changes of the visualized thoracic spine. There is degenerative osteoarthritis of the bilateral shoulders. There is no demonstrated abnormality of the visualized soft tissue structures of the upper abdomen. RAD/Chest 1 View IMPRESSION: Stable increased markings at the right lung base. Electronically Signed: Will Lincoln, at 15:37 EST , Service support ,
--- NOTE | 2019-08-19 14:36 | EKG12_ITS ---
Test Reason : STROKE ALERT Blood Pressure : / mmHG Vent. Rate : 064 BPM Atrial Rate : 060 BPM P-R Int : 000 ms QRS Dur : 068 ms QT Int : 398 ms P-R-T Axes : 000 042 019 degrees QTc Int : 410 ms Atrial fibrillation Low voltage QRS Abnormal ECG Confirmed by DIANA PRO ([id number]), medical transcription editor ANUP SHEPPARD ([id number]) on 08/22/2019 11:18:03 AM Referred By: DC Confirmed By:DIANA PRO
--- NOTE | 2019-08-19 14:37 | CT_ITS ---
STUDY: CTA HEAD AND NECK WITH CONTRAST REASON FOR EXAM: Male, 83 years old. Unresponsive. Left facial droop. Slurred speech and confusion. RADIATION DOSAGE (If Supplied By Facility): CTDIvol = ( 30.51 ) mGy, DLP = ( 783.46 ) mGycm TECHNIQUE: CT angiography was performed with a multi-detector CT scanner. Data acquisition was obtained from the skull base through the vertex following intravenous administration of IV Isovue 370 100. MIP images were reconstructed from the axial data set. Post-processing of the angiographic images was performed, with multiplanar reformation and 3D reconstruction. Individualized dose optimization techniques were used for this CT. COMPARISON: No relevant priors. FINDINGS: Normal bilateral petrous carotid arteries. There is calcified plaque formation of the right cavernous carotid artery, without a cross-sectional luminal stenosis. There is calcified plaque formation of the left cavernous carotid artery, without a cross-sectional luminal stenosis. Normal right A1 segments of the anterior cerebral artery. Normal left A1 segments of the anterior cerebral artery. Normal intact anterior communicating artery (ACOM). Normal bilateral A2 segments of the anterior cerebral arteries. Normal right M1 and M2 segments of the middle cerebral arteries, with a normal M1 bifurcation. Normal left M1 and M2 segments of the middle cerebral arteries, with a normal M1 bifurcation. Normal right posterior communicating artery (PCOM). Normal left posterior communicating artery (PCOM). Normal bilateral vertebral arteries. Normal basilar artery with a normal basilar bifurcation. The visualized bilateral superior cerebellar (SCA) arteries are normal. Normal bilateral P1, P2 and visualized P3 segments of the posterior cerebral arteries. There is no demonstrated aneurysm of the [place]. There is no demonstrated abnormality of the visualized brain. AORTIC ARCH: There is atherosclerotic calcific plaque formation of the aortic arch and great vessels arising from the aortic arch, without a hemodynamically significant stenosis. There is a normal origin of the brachiocephalic, left common carotid, and left subclavian arteries. Atherosclerotic plaques at the origin of the left subclavian artery and common carotid artery. RIGHT CAROTID ARTERIES: Normal right common carotid artery (CCA). Normal right common carotid bulb. There is mild atherosclerotic plaque formation of the origin of the right internal carotid artery with less than 50% cross sectional diameter stenosis. Normal visualized cervical portion of the right internal carotid artery. Normal origin of the right external carotid artery (ECA). LEFT CAROTID ARTERIES: Normal left common carotid artery (CCA). Normal left common carotid bulb. There is mild atherosclerotic plaque formation of the origin of the left internal carotid artery with less than 50% cross sectional diameter stenosis. Normal visualized cervical portion of the left internal carotid artery. Normal origin of the left external carotid artery (ECA). VERTEBRAL ARTERIES: There is enhancement within the bilateral vertebral arteries with a small right vertebral artery, and a dominant left vertebral artery. CT/CTA Head AND Neck W/ Contrast IMPRESSION: Calcific plaques at the origin of the right and left internal carotid artery causing less than 50% narrowing. Electronically Signed: Will Lincoln, at 16:00 EST , Service support ,
[2019-08-19 14:47] LABS: Absolute Lymphocyte Count 1.74 X10^3/uL (0.83-4.51); Absolute Neutrophil Count 3.8 X10^3/uL (2.0-7.7); Basophil# 0.02 X10^3/uL; Basophil% 0.3 % (0-1); Eosinophil# 0.05 X10^3/uL; Eosinophils% 0.8 % (0-5); Hematocrit 40.6 % (40-54); Hemoglobin 12.9 g/dL (13.0-16.5); Lymphocyte # 1.74 X10^3/ul (4.0); Lymphocyte % 28.4 % (19-41); Mean Corp Hgb Conc 31.8 g/dL (32-36); Mean Corpuscular Hgb 30.6 pg (27.0-32.0); Mean Corpuscular Volume 96.2 fL (80-94); Mean Platelet Vol. 9.1 fl (6.2-12.0); Monocyte# 0.55 X10^3/uL; NRBC Flagged by Analyzer 0 % (0-5); Neutrophil # 3.75 X10^3/uL (2.7-7.7); Neutrophil % 61.3 % (47-70); Platelet Count 231 K/mm3 (150-450); RBC Distribution Width CV 13.4 % (11.6-14.6); RBC Distribution Width SD 47.1 fl (35.1-43.9); Red Blood Count 4.22 M/mm3 (4.6-6.2); White Blood Count 6.1 K/mm3 (4.4-11.0)
--- NOTE | 2019-08-19 14:51 | CM.ED ---
Social Work Consult: Stroke Alert Informant: Self-Referral Met with patient and patient family. Support provided. Elton PAVON, AWA
[2019-08-19 15:14] LABS: Anion Gap 5 (5-15); BUN 9 mg/dL (7-18); BUN/Creat Ratio 9.7 RATIO (10-20); Calcium,Total 8.7 mg/dL (8.5-10.1); Chloride 105 mmol/L (98-107); Creatinine, Serum 0.93 mg/dL (0.70-1.30); EST Glomerular Filtration Rate 82 mL/min (>60); Est Glom Filt Rate - Afr Amer 99 mL/min (>60); Estimated Creatinine Clearance 61.05 ml/min; Glucose 104 mg/dL (74-106); Potassium 4.2 mmol/L (3.5-5.1); Sodium Level 143 mmol/L (136-145)
[2019-08-19 15:28] LABS: International Normalized Ratio 1.1; Prothrombin Time (Protime)PT. 14.4 SECONDS (11.7-14.9)
[2019-08-19 15:29] LABS: Partial Thromboplast Time 31.2 Seconds (24.1-36.2)
--- NOTE | 2019-08-19 15:47 | ED.VISSUMM ---
- ER Visit Summary Date of Service: 08/19/19 Chief Complaint: Altered mental status History of Present Illness: The patient is a 83 M who presents with his family for altered mental status. He was last known well at 10:30 AM. It is unsure when his symptoms started, but his family noticed a change in his vision. He seems to have trouble seeing things. His speech has been slurred and he has left facial droop. It sounds like the patient had a recent stroke according to the family, but they could not elaborate further. They do not know if he is on blood thinners. They deny any trauma, fever, or other associated symptoms. Physical Examination: Afebrile and vital signs unremarkable. Patient is alert and oriented to person and month. Face and eyes are deviated towards the right. Otherwise head and neck atraumatic. Heart irregular. Lungs clear. Abdomen soft and nontender. Extremities atraumatic. NIH stroke scale is 9. He received 2 points from his level of consciousness questions, one-point from his commands, 2 points from gaze, 2 points from visual adair, and one point from inattention. Test Results: See below Emergency Department Course and Treatment: Nursing notified me that there was a patient in the waiting room with strokelike symptoms. There were no beds available. I advised activating the stroke team. The initial CT showed nothing acute. I saw the patient in the exam room. NIH stroke scale was 9. Given his unclear medication prescriptions, the timing, and his symptoms, TPA was not advised. Neurology agreed. Did use the robot for communication with [facility]. They advised CTA head and neck. These were already ordered. If there is no LVO, the patient will be admitted here. We are awaiting the CTA results. Family went home to get his medication list. Patient has chronic changes, plaques in his left and right ICA less than 50% narrowing. Hospitalist was contacted for admission. Treatment Plan: As above Disposition: Admission Impression: 1. Acute stroke This note was generated with [employer] software. It may contain incorrect words, spelling, and punctuation that were not noted in review of the chart prior to signing ED Disposition - Plan for ED Patient: Referrals: Juan Story MD [Primary Care Provider] -
--- NOTE | 2019-08-19 17:43 | ECHOD_ITS ---
Reason For Study: TIA/CVA Procedure This was a 2D Doppler, Color Flow transthoracic echocardiogram. Exam performed portable in patient room. Left Ventricle Normal size and thickness. The estimated ejection fraction is 65 %. Unable to assess diastolic dysfunction due to arrhythmia. No regional wall motion abnormalities noted. Right Ventricle Moderately dilated right ventricle. Normal systolic function. Atria The left atrium is severely enlarged. The right atrium is severely enlarged. Normal atrial septum. Bubble contrast study negative for right to left interatrial shunt. Mitral Valve Rheumatic appearing mitral valve. Severe mitral annular calcification. Moderate focal mitral valve thickening. Tricuspid Valve Normal tricuspid valve. Moderate (2+) eccentric tricuspid valve insufficiency. Right ventricular systolic pressure estimated to be 40 mmHg. Moderate pulmonary hypertension. Aortic Valve Trisinus/trileaflet aortic valve. Mild diffuse aortic valve thickening. Mild restriction of the aortic valve. Immobile calcified left coronary cusp. There is no aortic stenosis. Pulmonic Valve Normal pulmonic valve. Great Vessels Calcified aortic root. Mild atherosclerosis of the aortic arch. Normal inferior vena cava. Inferior vena cava collapse with sniff. Pericardium/Pleural No pericardial effusion. Medication Performed a rapid injection of agitated mix of 9 cc saline and 1cc air to assess for atrial septal defect. MMode/2D Measurements & Calculations LVIDd: 4.2 cm IVSd: 1.3 cm Ao root diam: 3.2 cm LVIDs: 2.5 cm LVPWd: 1.1 cm RVDd: 4.1 cm FS: 39.5 % LAV(MOD-bp): 70.0 ml LVAd ap4: 20.0 cm2 SV(MOD-sp4): 34.3 ml LAV(MOD-bp) Indexed: 35.8 ml/m2 EDV(MOD-sp4): 49.6 ml LAV(MOD-sp2): 55.2 ml EDV(sp4-el): 50.3 ml LAV(MOD-sp4): 85.6 ml LVAs ap4: 10.1 cm2 ESV(MOD-sp4): 15.4 ml ESV(sp4-el): 15.4 ml EF(MOD-sp4): 69.1 % EF(sp4-el): 69.5 % SV(sp4-el): 35.0 ml LA A4 area: 27.3 cm2 LA dimension(2D): 4.6 cm RA A4 area: 29.4 cm2 Doppler Measurements & Calculations MV E max josefina: 120.0 cm/sec Ao V2 max: 111.7 cm/sec LV V1 max: 60.7 cm/sec Ao max P.0 mmHg LV V1 max P.5 mmHg Ao V2 mean: 82.9 cm/sec Ao mean P.0 mmHg Ao V2 VTI: 22.8 cm PA V2 max: 91.9 cm/sec TR max josefina: 251.8 cm/sec TR max P.4 mmHg Interpretation Summary The estimated ejection fraction is 65 %. Unable to assess diastolic dysfunction due to arrhythmia. The left atrium is severely enlarged. The right atrium is severely enlarged. Bubble contrast study negative for right to left interatrial shunt. Moderate (2+) eccentric tricuspid valve insufficiency. Right ventricular systolic pressure estimated to be 40 mmHg, but may be underestimated given eccentric TV jet. Moderate pulmonary hypertension. Immobile calcified left coronary cusp. Compared to echo report dated 02/27/2013, LV ffunction has remained the same, pt now appears to be in atrial fibrillation, and RVSP has gone from 50 to 40mm Hg. Pt appears to be in atrial fibirllation. Ordering Physician: Mich Lazcano Referring Physician: Juan Story Performed By: Caterina Garcia, HENRIK, RVT
--- NOTE | 2019-08-19 17:46 | PCM.HP.STD ---
Problem List (1) Dementia Status: Chronic (2) BPH (benign prostatic hyperplasia) Status: Chronic (3) Hypertension Status: Chronic History of Present Illness Date of Admission: 08/19/19 Chief Complaint: Altered mental status, vision changes, weakness. The patient is a 83 year old M who presents the emergency room due to altered mental status, vision changes, slurred speech and left facial droop. Patient confused during assessment, unable to state where he is or what month it is. at bedside provides HPI. She reports yesterday patient was doing well for a change. She reports they went out to lunch for [employer] and had an uneventful day. This morning, reports patient awoke early to go to the bathroom and then returned to bed. She attempted to wake him up a few hours later and he was difficult to arouse. She then reports upon awakening he was unable to see what was in front of him and had an unsteady gait and increased confusion. She also noted slurred speech and left facial droop. They brought him to the emergency room for evaluation at that time. Patient does have underlying dementia and reports intermittent cantankerous behavior. also reports he has a history of small strokes, hypertension, depression, dementia, BPH. Past Medical History Past Medical History (Chronic Problems): Chronic Problems Dementia (Chronic) BPH (benign prostatic hyperplasia) (Chronic) Hypertension (Chronic) Allergies No Known Allergies Allergy (Verified 06/17/19 13:04) Home Medications: Ambulatory Orders Medication Instructions Recorded Finasteride 5 mg PO QHS 05/15/19 Memantine HCl 5 mg PO QHS 05/15/19 Metoprolol(XL)Succ [Toprol Xl 25 mg PO DAILY 05/15/19 (Beta Lise)] Paroxetine HCl 20 mg PO QHS 06/17/19 Surgical History: - - Left shoulder surgery, cataract surgery. Psychiatric History: No pertinent psych hx Lives: Spouse/ Significant Other Smoking Status: Never smoker Alcohol: None Drugs: None - *Family History Maternal History Items: - - Lived into her 90s, healthy. Denies maternal cardiac history. Paternal History Items: - - in his 60s from tuberculosis. Review of Systems Constitutional: Denies: Chills, Fever, Weight Change HEENT: Denies: Head Aches, Sinus Congestion, Sinus Drainage Cardiovascular: Denies: Chest Pain, Palpitations Respiratory: Denies: Cough, Shortness of breath at rest, Sputum production Gastrointestinal: Denies: Abdominal Pain, Nausea, Vomiting Genitourinary: Denies: Dysuria Musculoskeletal: Denies: Joint Pain, Joint Tenderness Skin: Denies: Rash, Wounds Psychiatric: Denies: Anxiety, Depression, Homicidal Ideations, Suicidal Ideations Hematologic/ Lymphatic: Denies: Easy Bruising, Easy Bleeding Unable to obtain accurate/complete ROS d/t: Patient confused, denies current symptoms or complaints. VTE Information - Inpt Only VTE Present on Admission: No VTE Mechan Device Prophylaxis: None VTE Pharm Prophylaxis ordered?: Yes - Physical Exam Vitals/I&O's: Vital Signs Temp Pulse Resp BP Pulse Ox 98.3 F 63 16 127/82 H 97 08/19/19 17:12 08/19/19 17:12 08/19/19 17:12 08/19/19 17:12 08/19/19 17:12 Oxygen Delivery Method Room Air Weight: 172 lb 2.896 oz Body Mass Index (BMI) 24.7 Finger Stick Blood Glucose 109 General: Alert, Cooperative, No apparent distress, Confused HEENT: Atraumatic, PERRLA, EOMI, Normocephalic Oral: Dry Mucosa Neck: Supple, No JVD, Negative Carotid Bruits Lungs: Clear to auscultation, Normal air movement Cardiovascular: Regular rate, Regular Rhythm, Normal S1, Normal S2, No murmurs Abdomen: Bowel Sounds Present, Soft, Non Tender, Non-Distended Extremities: No clubbing, No cyanosis, No edema, Capillary Refill Less than 3 Seconds Skin: No rashes, No breakdown Musculoskeletal: No Tenderness to Palpation of Joints or Extremities Neurological: Cranial nerves II-XII grossly intact, - - Left facial droop Psych/Mental Status: Normal Affect, Appropriate Laboratory Results 08/19/19 14:28: POC Glucose 109 08/19/19 14:30: WBC 6.1, RBC 4.22 L, Hgb 12.9 L, Hct 40.6, MCV 96.2 H, MCH 30.6, MCHC 31.8 L, RDW Std Deviation 47.1 H, RDW Coeff of [place]by 13.4, Plt Count 231, MPV 9.1, Immature Gran % (Auto) 0.200, Neut % (Auto) 61.3, Lymph % (Auto) 28.4, [place] % (Auto) 9.0, Eos % (Auto) 0.8, Baso % (Auto) 0.3, Absolute Neuts (auto) 3.8, Absolute Lymphs (auto) 1.74, Nucleated RBC % 0 08/19/19 14:30: PT 14.4, INR 1.1, APTT 31.2 08/19/19 14:30: Sodium 143, Potassium 4.2, Chloride 105, Carbon Dioxide 33.0 H, Anion Gap 5, BUN 9, Creatinine 0.93, Estim Creat Clear Calc 61.05, Est GFR (MDRD) Af Amer 99, Est GFR (MDRD) Non-Af 82, BUN/Creatinine Ratio 9.7 L, Glucose 104, Calcium 8.7, Troponin I < 0.015 Current Medications Acetaminophen (Tylenol) 650 mg PO Q6H PRN PRN PRN Reason: Pain Score 1-3/Temp > 100.7 F Aspirin (Aspirin, Baby) 81 mg PO DAILY@0800 [facility] Atorvastatin Calcium (Lipitor) 80 mg PO QHS [facility] Clopidogrel Bisulfate (Plavix) 75 mg PO DAILY [facility] Finasteride (Proscar) 5 mg PO QHS [facility] Heparin Sodium (Porcine) (Heparin Na) 5,000 unit SC Q12 [facility] Influenza Virus Vaccine Quadrival (Flucelvax /Fluzone [id number]) 0.5 ml IM .ONCE ONE Stop: 08/20/19 10:01 Memantine (Namenda) 5 mg PO BID [facility] Metoprolol Succinate (Toprol Xl (Beta Lise)) 25 mg PO DAILY [facility] Paroxetine HCl (Paxil) 20 mg PO QHS [facility] Assessment/Plan 1. Suspected CVA-brain CT on admission showed no evidence of acute ischemic infarction. 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 Consult neurology. PT/OT/ST. aspirin, Plavix, statin. Obtain echocardiogram. Check UA. 2. Hypertension-stable, continue home metoprolol regimen. 3. Depression-continue paroxetine regimen. 4. Dementia-continue memantine regimen. 5. BPH-continue finasteride regimen. DVT prophylaxis-Heparin subcu CODE STATUS: DNR CCA This patient was seen by JUSTINE Townsend under the supervision of Dr. Lazcano.
[2019-08-19 20:15] LABS: Bacteria 0 SEEN /hpf (None Seen); Mucous, Urine 0 SEEN /hpf (<or=2+); Squamous Epithelial Cells - UA 0 SEEN /hpf (0-5); White Blood Cells 0 SEEN /hpf (0-5)
[2019-08-19 20:22] LABS: Color, Urine Straw (Yellow); Glucose, Dipstick Normal (Normal); Ketone-Dipstick Negative (Negative); Leukocyte Esterase-Dipstick Negative /ul (Negative); Nitrite-Dipstick Negative (Negative); Occult Blood-Urine Negative /ul (Negative); Protein-Dipstick Negative (Negative); Urine Bilirubin Dipstick Negative (Negative); Urine Clarity Clear (Clear); Urine Urobilinogen Normal (Normal)
[2019-08-19 20:30] LABS: Red Blood Cells-Urine 0-5 SEEN /hpf (0-5)
[2019-08-19 20:31] LABS: Amorphous Sediment 1+
[2019-08-19] MEDS: Memantine Hydrochloride 5 MG Tablet PO (21:22)
[2019-08-19] MEDS: Finasteride 5 MG Tablet PO (21:23)
[2019-08-19] MEDS: Atorvastatin Calcium 80 MG Tablet PO (21:24)
[2019-08-19] MEDS: Heparin Injection (Vial) 5,000 UNIT/ML VIAL 5000 UNIT SC (21:35)
[2019-08-19] MEDS: Paroxetine 20 MG Tablet PO (21:46)
[2019-08-20] VITALS (14 sets, daily range): BP systolic 94–115; BP diastolic 50–86; PULSE 62–94; RESP 16–18; TEMP 36.3–37.3; O2SAT 94–97; BMI 24.7
[2019-08-20] MEDS: Aspirin 81 MG TAB.CHEW PO (07:34)
--- NOTE | 2019-08-20 09:26 | MRI_ITS ---
We are attempting to reach an attending provider to discuss findings. An addendum with communication details will be sent when the communication is complete. STUDY: MRI BRAIN WITHOUT CONTRAST REASON FOR EXAM: Male, 83 years old. mental status changes, L facial droop, slurred speech, dementia TECHNIQUE: Standardized multiplanar fat and water weighted pulse sequences were obtained. COMPARISON: 08/19/2019 ct head FINDINGS: There is moderate cerebral atrophy with widening of the extra-axial spaces and ventricular dilatation. There are multiple white matter hyperintensities, distributed throughout the deep white matter tracts of the cerebral hemispheres, consistent with moderate chronic white matter ischemic changes. Again noted is a left occipital encephalomalacia and gliosis, consistent with prior insult. There is approximately 7 cm of restricted diffusion involving the right parietal lobe with drop of signal on ADC map, consistent with acute infarction. Normal bilateral basal ganglia. Normal thalami. There is no extra-axial fluid accumulation. Normal flow voids within the major intracranial circulation suggesting patency by spin echo criteria. Normal sella turcica, pituitary gland, infundibular stalk, optic chiasm and hypothalamus. Normal tectal plate and pineal gland. There are chronic white matter ischemic changes of the [place]. The midbrain and medulla are otherwise normal. Normal cerebellum. Normal basal cisterns. Normal bilateral temporal bones. MRI/Brain without Contrast IMPRESSION: Acute right parietal infarct. Chronic left occipital infarct. Moderate chronic microvascular ischemic changes. Electronically Signed: River Flynn MD at 15:17 EST Tel , Service support ,
--- NOTE | 2019-08-20 09:30 | PCM.CONS.GEN ---
Problem List (1) AMS (altered mental status) Status: Acute (2) Stroke Status: Acute Reason for Consult Date of Consultation: 08/20/19 Reason for Consultation: AMS and possible stroke History of Present Illness: The patient is a 83 year old M H HTN, history of stroke, dementia, BPH admitted with strokelike symptoms. History is obtained from the patient as well as medical records. Per documentation patient was admitted with altered mental status, vision changes, slurred speech and left facial droop. Per ED documentation [facility] telestroke was consulted and patient was deemed not to be TPA candidate as patient had an unknown onset of symptoms. ED documentation NIHSS on admission was 9. Per documentation patient was having difficulty in seeing, had unsteady gait and confusion when he woke up yesterday 08/19/2019 in the morning, and also per documentation had reported slurred speech and left facial droop at the time. 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 Per patient he lives with his , does not drive, may use cane/walker to ambulate, denies any frequent falls, and does not take aspirin at baseline. At present patient is AOA x2. T head done on admission reported to show focal encephalomalacia in the medial aspect of the right cerebellar hemisphere, CTA head/neck reported not to show any hemodynamically significant stenosis or occlusion. UA negative. [] Past Medical History Past Medical History (Chronic Problems): Chronic Problems Dementia (Chronic) BPH (benign prostatic hyperplasia) (Chronic) Hypertension (Chronic) Allergies No Known Allergies Allergy (Verified 06/17/19 13:04) Home Medications: Ambulatory Orders Medication Instructions Recorded Finasteride 5 mg PO QHS 05/15/19 Memantine HCl 5 mg PO QHS 05/15/19 Metoprolol(XL)Succ [Toprol Xl 25 mg PO DAILY 05/15/19 (Beta Lise)] Paroxetine HCl 20 mg PO QHS 06/17/19 Surgical History: - - Left shoulder surgery, cataract surgery. Psychiatric History: No pertinent psych hx Lives: Spouse/ Significant Other Smoking Status: Never smoker Tobacco Use: Non-smoker Alcohol: None Drugs: None - *Family History Maternal History Items: - - Lived into her 90s, healthy. Denies maternal cardiac history. Paternal History Items: - - in his 60s from tuberculosis. Review of Systems Constitutional: Reports: - - Complete ROS negative except as documented in HPI Patient Problems: Active and Suspected Problems AMS (altered mental status) (Acute) Stroke (Acute) - Physical Exam Vitals/I&O's: Vital Signs Temp Pulse Resp BP Pulse Ox 98.7 F 62 18 94/50 L 95 08/20/19 07:40 08/20/19 07:40 08/20/19 07:40 08/20/19 07:40 08/20/19 07:40 Oxygen Delivery Method Room Air Weight: 78.1 kg Body Mass Index (BMI) 24.7 Finger Stick Blood Glucose 109 Intake and Output for Last 24 Hours 08/18/19 08/19/19 08/20/19 23:59 23:59 23:59 Intake Total 120 / 120 50 / 50 Output Total 275 / 275 300 / 300 Balance -155 / -155 -250 / -250 General: Alert HEENT: Normocephalic Neck: Supple Lungs: Normal air movement Cardiovascular: Normal S1, Normal S2 Abdomen: Bowel Sounds Present Extremities: No cyanosis Neurological: - - Conscious, alert, AOA x2, CN II to XII grossly intact at present except left homonymous hemianopia, power 5/5 right upper and lower extremities, +4/5 left UE/5/5 left LE, plantars B/L flexor, no pronator drift, no sensory loss, no cerebellar signs, gait deferred, reflexes + B/L B/S/T/K/A, No NR, fundus not visualized, NIHSS 3 at present, mRS 0 at baseline Psych/Mental Status: Normal Affect Laboratory Results 08/19/19 14:28: POC Glucose 109 08/19/19 14:30: WBC 6.1, RBC 4.22 L, Hgb 12.9 L, Hct 40.6, MCV 96.2 H, MCH 30.6, MCHC 31.8 L, RDW Std Deviation 47.1 H, RDW Coeff of Darby 13.4, Plt Count 231, MPV 9.1, Immature Gran % (Auto) 0.200, Neut % (Auto) 61.3, Lymph % (Auto) 28.4, [place] % (Auto) 9.0, Eos % (Auto) 0.8, Baso % (Auto) 0.3, Absolute Neuts (auto) 3.8, Absolute Lymphs (auto) 1.74, Nucleated RBC % 0 08/19/19 14:30: PT 14.4, INR 1.1, APTT 31.2 08/19/19 14:30: Sodium 143, Potassium 4.2, Chloride 105, Carbon Dioxide 33.0 H, Anion Gap 5, BUN 9, Creatinine 0.93, Estim Creat Clear Calc 61.05, Est GFR (MDRD) Af Amer 99, Est GFR (MDRD) Non-Af 82, BUN/Creatinine Ratio 9.7 L, Glucose 104, Calcium 8.7, Troponin I < 0.015 08/19/19 20:09: Urine Color Straw, Urine Clarity Clear, Urine pH 7.0, Ur Specific [place] 1.010, Urine Protein Negative, Urine Glucose (UA) Normal, Urine Ketones Negative, Urine Occult Blood Negative, Urine Nitrite Negative, Urine Bilirubin Negative, Urine Urobilinogen Normal, Ur Leukocyte Esterase Negative, Urine RBC 0-5 SEEN, Urine WBC 0 SEEN, Ur Squamous Epith Cells 0 SEEN, Amorphous Sediment 1+, Urine Bacteria 0 SEEN, Urine Mucus 0 SEEN Current Medications Acetaminophen (Tylenol) 650 mg PO Q6H PRN PRN PRN Reason: Pain Score 1-3/Temp > 100.7 F Aspirin (Aspirin, Baby) 81 mg PO DAILY@0800 [facility] Last Admin: 08/20/19 07:34 Dose: 81 mg Documented by: Atorvastatin Calcium (Lipitor) 80 mg PO QHS [facility] Last Admin: 08/19/19 21:24 Dose: 80 mg Documented by: Clopidogrel Bisulfate (Plavix) 75 mg PO DAILY [facility] Finasteride (Proscar) 5 mg PO QHS [facility] Last Admin: 08/19/19 21:23 Dose: 5 mg Documented by: Heparin Sodium (Porcine) (Heparin Na) 5,000 unit SC Q12 [facility] Last Admin: 08/19/19 21:35 Dose: 5,000 unit Documented by: Influenza Virus Vaccine Quadrival (Flucelvax /Fluzone ) 0.5 ml IM .ONCE ONE Stop: 08/20/19 10:01 Last Admin: 08/19/19 21:43 Dose: 0.5 ml Documented by: Memantine (Namenda) 5 mg PO BID [facility] Last Admin: 08/19/19 21:22 Dose: 5 mg Documented by: Metoprolol Succinate (Toprol Xl (Beta Lise)) 25 mg PO DAILY [facility] Nutritional Formula (Lactose Free) (Ensure Enlive) 120 ml PO 4X/DAY [facility] Last Admin: 08/19/19 21:35 Dose: 120 ml Documented by: Paroxetine HCl (Paxil) 20 mg PO QHS [facility] Last Admin: 08/19/19 21:46 Dose: 20 mg Documented by: Assessment/Plan All Active Problems AMS (altered mental status) (Acute) Stroke (Acute) The patient is a 83 year old M PMH HTN, history of stroke, dementia, BPH admitted with strokelike symptoms. History is obtained from the patient as well as medical records. Per documentation patient was admitted with altered mental status, vision changes, slurred speech and left facial droop. Per ED documentation [facility] tel[facility]roke was consulted and patient was deemed not to be TPA candidate as patient had an unknown onset of symptoms. ED documentation NIHSS on admission was 9. Per documentation patient was having difficulty in seeing, had unsteady gait and confusion when he woke up yesterday 08/19/2019 in the morning, and also per documentation had reported slurred speech and left facial droop at the time. 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 Per patient he lives with his , does not drive, may use cane/walker to ambulate, denies any frequent falls, and does not take aspirin at baseline. At present patient is AOA x2. T head done on admission reported to show focal encephalomalacia in the medial aspect of the right cerebellar hemisphere, CTA head/neck reported not to show any hemodynamically significant stenosis or occlusion. UA negative. Impression Rule out right MCA stroke vs right occipital stroke vs right pontine stroke Plan -Aspirin 81 mg p.o. once daily. At present would not do dual antiplatelet has NIH stroke scale on admission was 9. Bleeding risk discussed in detail with the patient -Lipitor 40 mg PO q hs -MRI brain without contrast -CTA head/neck no hemodynamically significant stenosis or occlusion -HbA1c P, LDL P -TTE-pending -30-day event recorder on discharge -Stroke risk factors discussed and stroke education provided -Permissive HTN for 24 hrs -care home goal BP < 130/80 mmHg, goal LDL < 70 and goal Hba1c < 7% -PT/OT/ST -GI/DVT prophylaxis -Fall precautions -Further medical management per hospitalist team -Please call with questions if any -Follow-up with neurology in 4 weeks -Thank you for allowing us to participate in patient's care and management This note has been generated using [employer] dictation software. It may contain incorrect words, spellings and punctuation that were not noted in the review of the note prior to signing Code Visit Inpatient E&M: 79988 Init Hosp L3
[2019-08-20] MEDS: Heparin Injection (Vial) 5,000 UNIT/ML VIAL 5000 UNIT SC ×2 (09:43→21:24)
[2019-08-20] MEDS: Clopidogrel Bisulfate 75 MG Tablet PO (09:44)
[2019-08-20] MEDS: Memantine Hydrochloride 5 MG Tablet PO ×2 (09:44→21:24)
[2019-08-20] MEDS: Metoprolol(XL)Succ 25 MG Tablet PO (09:44)
--- NOTE | 2019-08-20 10:08 | NURSING ---
Patient's , Indira, called for MRI questionnaire and consent. Mu Calzada RN witnessed consent over phone
--- NOTE | 2019-08-20 12:18 | PN_ITS ---
<Tori Dewitt - Last Filed: 08/20/19 12:29> Patient Problems: Active and Suspected Problems AMS (altered mental status) (Acute) Stroke (Acute) Subjective: Patient seen and examined. More oriented during assessment today. Able to state where he is at and month. No new neuro symptoms or complaints. - Physical Exam Vitals/I&O's: Vital Signs Temp Pulse Resp BP Pulse Ox 99.1 F 90 18 114/76 94 08/20/19 11:40 08/20/19 11:40 08/20/19 11:40 08/20/19 11:40 08/20/19 11:40 Oxygen Delivery Method Room Air Weight: 172 lb 2.896 oz Body Mass Index (BMI) 24.7 Finger Stick Blood Glucose 109 Intake and Output for Last 24 Hours 08/18/19 08/19/19 08/20/19 23:59 23:59 23:59 Intake Total 120 / 120 290 / 290 Output Total 275 / 275 775 / 775 Balance -155 / -155 -485 / -485 General: Alert, Oriented x3, Cooperative HEENT: Atraumatic, PERRLA, EOMI, Normocephalic Neck: Supple, No JVD, Negative Carotid Bruits Lungs: Clear to auscultation, Normal air movement Cardiovascular: Regular rate, Regular Rhythm, Normal S1, Normal S2, No murmurs Abdomen: Bowel Sounds Present, Soft, Non Tender, Non-Distended Extremities: No clubbing, No cyanosis, No edema, Capillary Refill Less than 3 Seconds Skin: No rashes, No breakdown Musculoskeletal: No Tenderness to Palpation of Joints or Extremities Neurological: Cranial nerves II-XII grossly intact, Neuro grossly intact Psych/Mental Status: Normal Affect, Appropriate Laboratory Results 08/19/19 14:28: POC Glucose 109 08/19/19 14:30: WBC 6.1, RBC 4.22 L, Hgb 12.9 L, Hct 40.6, MCV 96.2 H, MCH 30.6, MCHC 31.8 L, RDW Std Deviation 47.1 H, RDW Coeff of Darby 13.4, Plt Count 231, MPV 9.1, Immature Gran % (Auto) 0.200, Neut % (Auto) 61.3, Lymph % (Auto) 28.4, [place] % (Auto) 9.0, Eos % (Auto) 0.8, Baso % (Auto) 0.3, Absolute Neuts (auto) 3.8, Absolute Lymphs (auto) 1.74, Nucleated RBC % 0 08/19/19 14:30: PT 14.4, INR 1.1, APTT 31.2 08/19/19 14:30: Sodium 143, Potassium 4.2, Chloride 105, Carbon Dioxide 33.0 H, Anion Gap 5, BUN 9, Creatinine 0.93, Estim Creat Clear Calc 61.05, Est GFR (MDRD) Af Amer 99, Est GFR (MDRD) Non-Af 82, BUN/Creatinine Ratio 9.7 L, Glucose 104, Calcium 8.7, Troponin I < 0.015 08/19/19 20:09: Urine Color Straw, Urine Clarity Clear, Urine pH 7.0, Ur Specific [place] 1.010, Urine Protein Negative, Urine Glucose (UA) Normal, Urine Ketones Negative, Urine Occult Blood Negative, Urine Nitrite Negative, Urine Bilirubin Negative, Urine Urobilinogen Normal, Ur Leukocyte Esterase Negative, Urine RBC 0-5 SEEN, Urine WBC 0 SEEN, Ur Squamous Epith Cells 0 SEEN, Amorphous Sediment 1+, Urine Bacteria 0 SEEN, Urine Mucus 0 SEEN Current Medications Acetaminophen (Tylenol) 650 mg PO Q6H PRN PRN PRN Reason: Pain Score 1-3/Temp > 100.7 F Aspirin (Aspirin, Baby) 81 mg PO DAILY@0800 [facility] Last Admin: 08/20/19 07:34 Dose: 81 mg Documented by: Atorvastatin Calcium (Lipitor) 40 mg PO QHS [facility] Finasteride (Proscar) 5 mg PO QHS [facility] Last Admin: 08/19/19 21:23 Dose: 5 mg Documented by: Heparin Sodium (Porcine) (Heparin Na) 5,000 unit SC Q12 [facility] Last Admin: 08/20/19 09:43 Dose: 5,000 unit Documented by: Memantine (Namenda) 5 mg PO BID [facility] Last Admin: 08/20/19 09:44 Dose: 5 mg Documented by: Metoprolol Succinate (Toprol Xl (Beta Lise)) 25 mg PO DAILY [facility] Last Admin: 08/20/19 09:44 Dose: 25 mg Documented by: Nutritional Formula (Lactose Free) (Ensure Enlive) 120 ml PO 4X/DAY [facility] Last Admin: 08/20/19 09:43 Dose: 120 ml Documented by: Paroxetine HCl (Paxil) 20 mg PO QHS [facility] Last Admin: 08/19/19 21:46 Dose: 20 mg Documented by: Medical Necessity - Tobacco Use Smoking Status: Never smoker Tobacco Use: Non-smoker Assessment/Plan All Active Problems AMS (altered mental status) (Acute) Stroke (Acute) 1. Suspected CVA-brain CT on admission showed no evidence of acute ischemic infarction. 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 Neurology consulted. PT/OT/ST. aspirin, Plavix, statin. Urinalysis unremarkable. MRI of brain pending. Echocardiogram pending. Neurology recommending 30-day event recorder at discharge pending MRI however suspicious for right occipital stroke versus right pontine stroke. 2. Hypertension-stable, continue home metoprolol regimen. 3. Depression-continue paroxetine regimen. 4. Dementia-continue memantine regimen. 5. BPH-continue finasteride regimen. DVT prophylaxis-Heparin subcu CODE STATUS: DNR [facility] This patient was seen by JUSTINE Townsend under the supervision of Dr. Donovan. <Colette Donovan E - Last Filed: 08/20/19 13:00> - Physical Exam Vitals/I&O's: Vital Signs Temp Pulse Resp BP Pulse Ox 99.1 F 90 18 114/76 94 08/20/19 11:40 08/20/19 11:40 08/20/19 11:40 08/20/19 11:40 08/20/19 11:40 Oxygen Delivery Method Room Air Weight: 172 lb 2.896 oz Body Mass Index (BMI) 24.7 Finger Stick Blood Glucose 109 Intake and Output for Last 24 Hours 08/18/19 08/19/19 08/20/19 23:59 23:59 23:59 Intake Total 120 / 120 290 / 290 Output Total 275 / 275 775 / 775 Balance -155 / -155 -485 / -485 Laboratory Results 08/19/19 14:28: POC Glucose 109 08/19/19 14:30: WBC 6.1, RBC 4.22 L, Hgb 12.9 L, Hct 40.6, MCV 96.2 H, MCH 30.6, MCHC 31.8 L, RDW Std Deviation 47.1 H, RDW Coeff of Darby 13.4, Plt Count 231, MPV 9.1, Immature Gran % (Auto) 0.200, Neut % (Auto) 61.3, Lymph % (Auto) 28.4, [place] % (Auto) 9.0, Eos % (Auto) 0.8, Baso % (Auto) 0.3, Absolute Neuts (auto) 3.8, Absolute Lymphs (auto) 1.74, Nucleated RBC % 0 08/19/19 14:30: PT 14.4, INR 1.1, APTT 31.2 08/19/19 14:30: Sodium 143, Potassium 4.2, Chloride 105, Carbon Dioxide 33.0 H, Anion Gap 5, BUN 9, Creatinine 0.93, Estim Creat Clear Calc 61.05, Est GFR (MDRD) Af Amer 99, Est GFR (MDRD) Non-Af 82, BUN/Creatinine Ratio 9.7 L, Glucose 104, Calcium 8.7, Troponin I < 0.015 08/19/19 20:09: Urine Color Straw, Urine Clarity Clear, Urine pH 7.0, Ur Specific [place] 1.010, Urine Protein Negative, Urine Glucose (UA) Normal, Urine Ketones Negative, Urine Occult Blood Negative, Urine Nitrite Negative, Urine Bilirubin Negative, Urine Urobilinogen Normal, Ur Leukocyte Esterase Negative, Urine RBC 0-5 SEEN, Urine WBC 0 SEEN, Ur Squamous Epith Cells 0 SEEN, Amorphous Sediment 1+, Urine Bacteria 0 SEEN, Urine Mucus 0 SEEN Current Medications Acetaminophen (Tylenol) 650 mg PO Q6H PRN PRN PRN Reason: Pain Score 1-3/Temp > 100.7 F Aspirin (Aspirin, Baby) 81 mg PO DAILY@0800 [facility] Last Admin: 08/20/19 07:34 Dose: 81 mg Documented by: Atorvastatin Calcium (Lipitor) 40 mg PO QHS [facility] Finasteride (Proscar) 5 mg PO QHS [facility] Last Admin: 08/19/19 21:23 Dose: 5 mg Documented by: Heparin Sodium (Porcine) (Heparin Na) 5,000 unit SC Q12 [facility] Last Admin: 08/20/19 09:43 Dose: 5,000 unit Documented by: Memantine (Namenda) 5 mg PO BID [facility] Last Admin: 08/20/19 09:44 Dose: 5 mg Documented by: Metoprolol Succinate (Toprol Xl (Beta Lise)) 25 mg PO DAILY [facility] Last Admin: 08/20/19 09:44 Dose: 25 mg Documented by: Nutritional Formula (Lactose Free) (Ensure Enlive) 120 ml PO 4X/DAY [facility] Last Admin: 08/20/19 09:43 Dose: 120 ml Documented by: Paroxetine HCl (Paxil) 20 mg PO QHS [facility] Last Admin: 08/19/19 21:46 Dose: 20 mg Documented by: Assessment/Plan Hospitalist note: I am seeing this patient in conjunction with Tori Dewitt. I independently seen and examined the patient. Progress note above , laboratory data and imaging studies reviewed and I concur with the above treatment plan. Today, patient is alert and oriented x3. His speech seemed to be clear and coherent. No facial droop today. He denies any blurred vision. Denies focal arm or leg weakness. His vital signs are stable. - Physical Exam General: Alert, Oriented x3, Cooperative, No apparent distress. HEENT: Atraumatic, PERRLA, EOMI. Neck: Supple, No JVD, Negative Carotid Bruits, Trachea Midline, Thyroid Normal. Lungs: Clear to auscultation, Normal air movement, No rhonchi, No wheeze, No rales. Cardiovascular: Regular rate, Regular Rhythm, Normal S1, Normal S2, PMI Normal. Abdomen: Bowel Sounds Present, Soft, Non Tender, Non-Distended, No Hepato- splenomegaly. Extremities: No clubbing, No cyanosis, No edema Skin: No rashes, No breakdown Neurological: Cranial nerves are intact, no facial droop, normal power and tone of all limbs. Neuro grossly intact Vital Signs are stable. Assessment and plan: #1 confusion/blurred vision/slurred speech: Suspected acute stroke: CT scan brain on admission showed no acute findings. CTA of the head and neck showed no acute stroke, revealed bilateral internal carotid artery stenosis less than 50%. EKG revealed A. fib, rate is controlled. It is not clear if the patient has history of A. fib. He is on aspirin and statins. Vital signs are stable, blood pressure stable. Neurology consulted. MRI is pending. 2D echocardiogram reviewed, revealed ejection fraction of 65%, severely enlarged left and right atrium, bubble contrast study negative for [id number] shunt, patient appears to be in atrial fibrillation. Plan to continue same treatment, awaiting MRI report. #2 questionable proximal atrial fibrillation: It is not clear if patient had a history of A. fib in the past. EKG revealed A. fib, rate is controlled. He is on metoprolol. He is not on anticoagulation. Not sure if the patient would be a candidate for anticoagulation because of his age, dementia and frequent falls at home. Will wait for the MRI report. #3 other chronic medical problems: Stable, continue current medications as above. This note was generated with [employer] software. It may contain incorrect words, spelling, and punctuation that were not noted in checking the note before signing. Code Visit OBSV E&M: 51238 Subsequent observation care L2
--- NOTE | 2019-08-20 13:34 | NURSING ---
read and reviewed SN documentation
--- NOTE | 2019-08-20 13:57 | CASEMGMT ---
SW did not complete a PHQ - with patient as he has dementia and would not be able to participate. Linda BILLINGS MSW
--- NOTE | 2019-08-20 15:15 | CHAPLAIN ---
patient was not in his room at time of attempted visit
[2019-08-20] MEDS: Atorvastatin Calcium 40 MG Tablet PO (21:23)
[2019-08-20] MEDS: Paroxetine 20 MG Tablet PO (21:23)
[2019-08-20] MEDS: Finasteride 5 MG Tablet PO (21:24)
[2019-08-21] VITALS (14 sets, daily range): BP systolic 92–142; BP diastolic 59–75; PULSE 67–93; RESP 14–20; TEMP 36.4–37.1; O2SAT 95–97; BMI 24.7
--- NOTE | 2019-08-21 05:55 | EKG12_ITS ---
Test Reason : AM EKG Blood Pressure : / mmHG Vent. Rate : 070 BPM Atrial Rate : 069 BPM P-R Int : 000 ms QRS Dur : 070 ms QT Int : 384 ms P-R-T Axes : 000 041 020 degrees QTc Int : 414 ms Atrial fibrillation Abnormal ECG When compared with ECG of 19-AUG-2019 15:12, MANUAL COMPARISON REQUIRED, DATA IS UNCONFIRMED Confirmed by JEAN CARLOS COMER, LEIDY ([id number]), acquisition editor JEREMY HSIEH ([id number] on 08/26/2019 1:45:06 PM Referred By: ERICKSON Confirmed By:MICHELLE EVANGELISTA MD
--- NOTE | 2019-08-21 09:50 | CASEMGMT ---
After reviewing PT/OT RUTHIE called patient's . Introduced self and role at [facility]. RUTHIE asked her about discharge plan. She was open to patient going somewhere short term for rehab. RUTHIE told her the local facilities that are in network with their insurance. She said [facility] fine since [facility] currently have no beds. RUTHIE told her SW will make the referral and if they can accept him [facility] will get in touch with [facility] to obtain authorization. RUTHIE told her SW will let her know. She thanked RUTHIE for the phone call. RUTHIE called [facility] and left a message with referral as well as faxed referral. Linda BILLINGS MSW
--- NOTE | 2019-08-21 10:39 | CASEMGMT ---
SW received phone call from Porsche at [facility] and they can accept patient. She will start the process for insurance authorization. Plan: [facility] pending insurance approval. Linda BILLINGS MSW
[2019-08-21] MEDS: Metoprolol(XL)Succ 25 MG Tablet PO (10:40)
[2019-08-21] MEDS: Heparin Injection (Vial) 5,000 UNIT/ML VIAL 5000 UNIT SC (10:40)
[2019-08-21] MEDS: Memantine Hydrochloride 5 MG Tablet PO ×2 (10:40→22:09)
[2019-08-21] MEDS: Aspirin 81 MG TAB.CHEW PO (10:40)
--- NOTE | 2019-08-21 11:01 | PN.NEURO_ITS ---
Patient Problems: Active and Suspected Problems AMS (altered mental status) (Acute) Stroke (Acute) Subjective: No issues overnight. Care discussed with the hospitalist team. - Physical Exam Vitals/I&O's: Vital Signs Temp Pulse Resp BP Pulse Ox 98.7 F 68 15 142/75 H 97 08/21/19 07:35 08/21/19 10:40 08/21/19 07:35 08/21/19 10:40 08/21/19 07:35 Oxygen Delivery Method Room Air Weight: 78.1 kg Body Mass Index (BMI) 24.7 Finger Stick Blood Glucose 109 Intake and Output for Last 24 Hours 08/19/19 08/20/19 08/21/19 23:59 23:59 23:59 Intake Total 120 / 120 890 / 890 100 / 100 Output Total 275 / 275 1750 / 1750 350 / 350 Balance -155 / -155 -860 / -860 -250 / -250 General: Alert HEENT: Normocephalic Neck: Supple Lungs: Normal air movement Cardiovascular: Normal S1, Normal S2 Abdomen: Bowel Sounds Present Extremities: No cyanosis Neurological: - - Conscious, alert, AOA x2, CN II to XII grossly intact at present except left homonymous hemianopia, power 5/5 right upper and lower extremities, -5/5 left UE/5/5 left LE, plantars B/L flexor, no pronator drift, no sensory loss, no cerebellar signs, gait deferred, reflexes + B/L B/S/T/K/A, No NR, fundus not visualized, NIHSS 3 at present, mRS 0 at baseline Psych/Mental Status: Normal Affect Current Medications Acetaminophen (Tylenol) 650 mg PO Q6H PRN PRN PRN Reason: Pain Score 1-3/Temp > 100.7 F Aspirin (Aspirin, Baby) 81 mg PO DAILY@0800 [facility] Last Admin: 08/21/19 10:40 Dose: 81 mg Documented by: Atorvastatin Calcium (Lipitor) 40 mg PO QHS [facility] Last Admin: 08/20/19 21:23 Dose: 40 mg Documented by: Finasteride (Proscar) 5 mg PO QHS [facility] Last Admin: 08/20/19 21:24 Dose: 5 mg Documented by: Heparin Sodium (Porcine) (Heparin Na) 5,000 unit SC Q12 [facility] Last Admin: 08/21/19 10:40 Dose: 5,000 unit Documented by: Memantine (Namenda) 5 mg PO BID [facility] Last Admin: 08/21/19 10:40 Dose: 5 mg Documented by: Metoprolol Succinate (Toprol Xl (Beta Lise)) 25 mg PO DAILY [facility] Last Admin: 08/21/19 10:40 Dose: 25 mg Documented by: Nutritional Formula (Lactose Free) (Ensure Enlive) 120 ml PO 4X/DAY [facility] Last Admin: 08/21/19 10:40 Dose: 120 ml Documented by: Paroxetine HCl (Paxil) 20 mg PO QHS [facility] Last Admin: 08/20/19 21:23 Dose: 20 mg Documented by: STROKE Vital Signs/Narrative: Vital Signs Temp Pulse Resp BP Pulse Ox 08/21/19 10:40 68 142/75 H 08/21/19 07:35 98.7 F 68 15 142/75 H 97 08/21/19 07:09 69 Medical Necessity - Tobacco Use Smoking Status: Never smoker Tobacco Use: Non-smoker Assessment/Plan All Active Problems AMS (altered mental status) (Acute) Stroke (Acute) The patient is a 83 year old M PMH HTN, history of stroke, dementia, BPH admitted with strokelike symptoms. History is obtained from the patient as well as medical records. Per documentation patient was admitted with altered mental status, vision changes, slurred speech and left facial droop. Per ED documentation [facility] telestroke was consulted and patient was deemed not to be TPA candidate as patient had an unknown onset of symptoms. ED documentation NIHSS on admission was 9. Per documentation patient was having difficulty in seeing, had unsteady gait and confusion when he woke up yesterday 08/19/2019 in the morning, and also per documentation had reported slurred speech and left facial droop at the time. 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 Per patient he lives with his , does not drive, may use cane/walker to ambulate, denies any frequent falls, and does not take aspirin at baseline. At present patient is AOA x2. T head done on admission reported to show focal encephalomalacia in the medial aspect of the right cerebellar hemisphere, CTA head/neck reported not to show any hemodynamically significant stenosis or occlusion. UA negative. 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 [id number] VASc score of atleast 5. Bleeding risks discussed in detail. Stop ASA once Eliquis is started -Lipitor 40 mg PO q hs -MRI brain without contrast reviewed -CTA head/neck no hemodynamically significant stenosis or occlusion -HbA1c P, LDL P -TTE-EF 65%, severely dilated LA, no PFO -30-day event recorder on discharge -Stroke risk factors discussed and stroke education provided -Permissive HTN for 24 hrs -Frequent neuro checks -intermission coordinator goal BP < 130/80 mmHg, goal LDL < 70 and goal Hba1c < 7% -On Memantine for dementia -PT/OT/ST -GI/DVT prophylaxis -Fall precautions -Further medical management per hospitalist team -Please call with questions if any -Follow-up with neurology in 4 weeks -Thank you for allowing us to participate in patient's care and management This note has been generated using Lela dictation software. It may contain incorrect words, spellings and punctuation that were not noted in the review of the note prior to signing
[2019-08-21 12:16] LABS: Hemoglobin A1c 5.8 % (4.2-6.3)
--- NOTE | 2019-08-21 12:16 | PN_ITS ---
Patient Problems: Active and Suspected Problems AMS (altered mental status) (Acute) Stroke (Acute) Subjective: Chief complaint: Follow-up after admission for acute stroke and atrial fibrillation. Patient seen and examined. No acute events overnight. Patient is kind of having left-sided neglect. He is alert and oriented x2. He has no focal arm or leg weakness. His vital signs are stable. - Physical Exam Vitals/I&O's: Vital Signs Temp Pulse Resp BP Pulse Ox 98.2 F 82 14 102/69 96 08/21/19 11:35 08/21/19 11:36 08/21/19 11:35 08/21/19 11:35 08/21/19 11:35 Oxygen Delivery Method Room Air Weight: 172 lb 2.896 oz Body Mass Index (BMI) 24.7 Finger Stick Blood Glucose 109 Intake and Output for Last 24 Hours 08/19/19 08/20/19 08/21/19 23:59 23:59 23:59 Intake Total 120 / 120 890 / 890 100 / 100 Output Total 275 / 275 1750 / 1750 350 / 350 Balance -155 / -155 -860 / -860 -250 / -250 General: Alert, Cooperative, No apparent distress, - - Oriented x2. HEENT: Atraumatic, PERRLA, EOMI, Normocephalic Oral: Moist Mucosa, No Gingival or Mucosal Lesions/ Ulcerations Neck: Supple, No JVD, Negative Carotid Bruits, Trachea Midline, Thyroid Normal Size and Texture Lungs: Clear to auscultation, Normal air movement, No rhonchi, No wheeze, No rales, Diminished Cardiovascular: Normal S1, Normal S2, PMI Normal, Irregular Rate Abdomen: Bowel Sounds Present, Soft, Non Tender, Non-Distended, No Hepato- splenomegaly Extremities: No clubbing, No cyanosis, No edema Skin: No rashes, No breakdown Lymphatic: No Cervical, Supraclavicular, or Inguinal Adenopathy Neurological: Motor Exam 5/5 strength throughout, - - Left hemianopsia. Psych/Mental Status: Normal Affect, Appropriate Laboratory Results 08/21/19 11:44: Triglycerides Pending, Cholesterol Pending, LDL Cholesterol Pending, VLDL Cholesterol Pending, HDL Cholesterol Pending 08/21/19 11:44: Hemoglobin A1c 5.8 Clinical Impression(s) from Imaging Studies Brain MRI 08/20/19 09:26 IMPRESSION: Acute right parietal infarct. Chronic left occipital infarct. Moderate chronic microvascular ischemic changes. Electronically Signed: River Flynn MD at 15:17 EST Tel , Service support , ADDENDUM: 08/20/19 1532 IMPRESSION: Acute right parietal infarct. Chronic left occipital infarct. Moderate chronic microvascular ischemic changes. N.B. : The above information has been verbally conveyed by River Flynn MD to Dr. Tori Dewitt MD, on 08/20/2019 15:25:48 (ET). Electronically Signed: River Flynn MD at 15:17 EST Tel , Service support , Current Medications Acetaminophen (Tylenol) 650 mg PO Q6H PRN PRN PRN Reason: Pain Score 1-3/Temp > 100.7 F Apixaban (Eliquis) 5 mg PO BID [facility] Aspirin (Aspirin, Baby) 81 mg PO DAILY@0800 [facility] Last Admin: 08/21/19 10:40 Dose: 81 mg Documented by: Atorvastatin Calcium (Lipitor) 40 mg PO QHS [facility] Last Admin: 08/20/19 21:23 Dose: 40 mg Documented by: Finasteride (Proscar) 5 mg PO QHS [facility] Last Admin: 08/20/19 21:24 Dose: 5 mg Documented by: Memantine (Namenda) 5 mg PO BID [facility] Last Admin: 08/21/19 10:40 Dose: 5 mg Documented by: Metoprolol Succinate (Toprol Xl (Beta Lise)) 25 mg PO DAILY [facility] Last Admin: 08/21/19 10:40 Dose: 25 mg Documented by: Nutritional Formula (Lactose Free) (Ensure Enlive) 120 ml PO 4X/DAY [facility] Last Admin: 08/21/19 10:40 Dose: 120 ml Documented by: Paroxetine HCl (Paxil) 20 mg PO QHS [facility] Last Admin: 08/20/19 21:23 Dose: 20 mg Documented by: Medical Necessity - Tobacco Use Smoking Status: Never smoker Tobacco Use: Non-smoker Assessment/Plan All Active Problems AMS (altered mental status) (Acute) Stroke (Acute) This is an 83 years old male patient presented to the emergency room because of change in mental status, change in vision and he was found to have acute right parietal infarct and also found to have atrial fibrillation which is not clear if this is acute or chronic. #1 #1 acute right right MCA/right parietal infarct: Probably embolic stroke, patient did have chronic left occipital infarct on the MRI. The only deficit is the left side of anoxia. No motor deficit. CTA of the neck was remarkable for bilateral internal carotid stenosis less than 50%. Repeat EKG from today revealed atrial fibrillation, rate is controlled. 2D echocardiogram reviewed, revealed ejection fraction of 65%, severely enlarged left and right atrium, bubble contrast study negative for [id number] shunt, patient appears to be in atrial fibrillation. He is on aspirin and statins. Case discussed with neurology and agreed to start patient on anticoagulation. Plan: Start Eliquis 5 mill grams p.o. twice daily, patient will need placement to [facility] facility. #2 atrial fibrillation: Unknown if this is new onset or chronic. Patient has been in persistent A. fib, rate is controlled. 2D echocardiogram reviewed as above. He is on metoprolol for rate control. Plan to start Eliquis as above. #3 Hypertension: Blood pressure stable, continue metoprolol. #4 benign prostatic hypertrophy: Stable, continue finasteride. #5 depression: Stable, continue Paxil. #6 dementia: Continue memantine. #7 DVT prophylaxis: Started on Eliquis twice daily. This note was generated with [employer]Soft[employer] dictation software. It may contain incorrect words, spelling, and punctuation that were not noted in checking the note before signing. Code Visit Inpatient E&M: 31150 Subs Hosp L2
[2019-08-21 12:40] LABS: Cholesterol 149 mg/dL (200); High Density Lipoprotein 37 mg/dL; Triglycerides 118 mg/dL; Very Low Density Lipoprotein 24 mg/dL (5-40)
--- NOTE | 2019-08-21 15:04 | CHAPLAIN ---
Type of Pastoral Visit _x__ Initial Visit ___ Follow-up Visit ___ On-call Visit ___ General Patient Visit ___ Spiritual Assessment ___ Family Conference ___ Bereavement ___ Rapid Response ___ Code Blue ___ Other (describe below) Pastoral Care Referral From _x__ Patient ___ Family ___ Nurse ___ Physician ___ Wax Cutter ___ Injection Molder ___ Other (describe below) Sacrament/Intervention _x__ Active listening ___ Anointing ___ Muslim ___ Bereavement ___ Communion ___ Lyn exploration ___ ___ Life review _x__ Prayer ___ Reconciliation ___ Sacrament of Sick _x__ Supportive presence ___ Wedding ___ Other (describe below) Pastoral Comments patient does not appear to know where he is at the moment and is not able to see clearly; pt does respond to questions but also gives unusual answers; food tray was delivered and this ambulance attendant went to notify [employer] so he could be assisted; pt did welcome prayer
--- NOTE | 2019-08-21 15:14 | CASEMGMT ---
RUTHIE spoke with patient's while she was visiting. RUTHIE let her know that patient was accepted at [facility] and we just have to wait on insurance to approve him. She thanked RUTHIE for the information. Plan: [facility] pending insurance approval. Linda BILLINGS MSW
[2019-08-21] MEDS: Atorvastatin Calcium 40 MG Tablet PO (22:09)
[2019-08-21] MEDS: Finasteride 5 MG Tablet PO (22:10)
[2019-08-21] MEDS: Paroxetine 20 MG Tablet PO (22:10)
[2019-08-21] MEDS: APIXABAN 5 MG TABLET PO (22:11)
[2019-08-22] VITALS (7 sets, daily range): BP systolic 95–105; BP diastolic 55–66; PULSE 57–111; RESP 16–18; TEMP 36.6–36.7; O2SAT 95–98; BMI 24.7
--- NOTE | 2019-08-22 09:50 | PN_ITS ---
Patient Problems: Active and Suspected Problems AMS (altered mental status) (Acute) Stroke (Acute) Subjective: Chief complaint: Follow-up after admission for acute stroke and A. fib. Patient seen and examined. No acute events overnight. He denies any complaints and he feels better. He is alert and related x2. Vital signs are stable. - Physical Exam Vitals/I&O's: Vital Signs Temp Pulse Resp BP Pulse Ox 98.0 F 57 L 16 99/63 95 08/22/19 06:15 08/22/19 07:08 08/22/19 06:15 08/22/19 06:15 08/22/19 06:15 Oxygen Delivery Method Room Air Weight: 172 lb 2.896 oz Body Mass Index (BMI) 24.7 Finger Stick Blood Glucose 109 Intake and Output for Last 24 Hours 08/20/19 08/21/19 08/22/19 23:59 23:59 23:59 Intake Total 890 / 890 700 / 700 240 / 240 Output Total 1750 / 1750 575 / 575 250 / 250 Balance -860 / -860 125 / 125 -10 / -10 General: Alert, Cooperative, No apparent distress, - - Oriented x2. HEENT: Atraumatic, PERRLA, EOMI, Normocephalic Neck: Supple, No JVD, Negative Carotid Bruits, Trachea Midline, Thyroid Normal Size and Texture Lungs: Clear to auscultation, Normal air movement, No rhonchi, No wheeze, No rales, Diminished Cardiovascular: Normal S1, Normal S2, PMI Normal, Irregular Rate Abdomen: Bowel Sounds Present, Soft, Non Tender, Non-Distended, No Hepato-splenomegaly Extremities: No clubbing, No cyanosis, No edema Skin: No rashes, No breakdown Lymphatic: No Cervical, Supraclavicular, or Inguinal Adenopathy Neurological: Cranial nerves II-XII grossly intact - Apart from left-sided hemianopsia., Motor Exam 5/5 strength throughout Psych/Mental Status: Normal Affect, Appropriate Laboratory Results 08/21/19 11:44: Triglycerides 118, Cholesterol 149, LDL Cholesterol 88, VLDL Cholesterol 24, HDL Cholesterol 37 L 08/21/19 11:44: Hemoglobin A1c 5.8 Current Medications Acetaminophen (Tylenol) 650 mg PO Q6H PRN PRN PRN Reason: Pain Score 1-3/Temp > 100.7 F Apixaban (Eliquis) 5 mg PO BID [facility] Last Admin: 08/21/19 22:11 Dose: 5 mg Documented by: Atorvastatin Calcium (Lipitor) 40 mg PO QHS [facility] Last Admin: 08/21/19 22:09 Dose: 40 mg Documented by: Finasteride (Proscar) 5 mg PO QHS [facility] Last Admin: 08/21/19 22:10 Dose: 5 mg Documented by: Memantine (Namenda) 5 mg PO BID [facility] Last Admin: 08/21/19 22:09 Dose: 5 mg Documented by: Metoprolol Succinate (Toprol Xl (Beta Lise)) 25 mg PO DAILY [facility] Last Admin: 08/21/19 10:40 Dose: 25 mg Documented by: Nutritional Formula (Lactose Free) (Ensure Enlive) 120 ml PO 4X/DAY [facility] Last Admin: 08/21/19 22:09 Dose: 120 ml Documented by: Paroxetine HCl (Paxil) 20 mg PO QHS [facility] Last Admin: 08/21/19 22:10 Dose: 20 mg Documented by: Medical Necessity - Tobacco Use Smoking Status: Never smoker Tobacco Use: Non-smoker Assessment/Plan All Active Problems AMS (altered mental status) (Acute) Stroke (Acute) This is an 83 years old male patient presented to the emergency room because of change in mental status, change in vision and he was found to have acute right parietal infarct and also found to have atrial fibrillation which is not clear if this is acute or chronic. #1 #1 acute right right MCA/right parietal infarct: He is on statins and E liquis. Vital signs are stable, blood pressure controlled. Probably embolic stroke, patient did have chronic left occipital infarct on the MRI. CTA of the neck was remarkable for bilateral internal carotid stenosis less than 50%. Repeat EKG from today revealed atrial fibrillation, rate is controlled. 2D echocardiogram reviewed, revealed ejection fraction of 65%, severely enlarged left and right atrium, bubble contrast study negative for [id number] shunt, patient appears to be in atrial fibrillation. Awaiting insurance approval for placement to [facility]. #2 atrial fibrillation: Unknown if this is new onset or chronic. Rate is controlled. He is on metoprolol for rate control and started on Eliquis for anticoagulation. 2D echocardiogram reviewed as above. #3 Hypertension: Blood pressure stable, continue metoprolol. #4 benign prostatic hypertrophy: Stable, continue finasteride. #5 depression: Stable, continue Paxil. #6 dementia: Continue memantine. #7 DVT prophylaxis: Continue Eliquis. This note was generated with And[employer]ilog dictation software. It may contain incorrect words, spelling, and punctuation that were not noted in checking the note before signing. Code Visit Inpatient E&M: 53574 Subs Hosp L2
--- NOTE | 2019-08-22 09:54 | PCM.TXEXTCAR ---
- Diet 08/21/19 13:15 Diet: Regular Diet Is pt able to select menu?: Yes Diet Comments: Please leave tray at the nurses station - Routine Orders/Code Status Code Status: [id number]-[id number] - Suggestions for Active Care Change Position every (hours): 3 Hours to sit in a chair: 2 Times a day to sit in chair: 3 - Therapies Weight Bearing: Weight bearing as tolerated Physical Therapy: Eval and Treat Occupational Therapy: Eval and Treat - Allergies/Procedures Done in Hospital Allergies/Adverse Reactions: Allergies No Known Allergies Allergy (Verified 06/17/19 13:04) - Type of Care/Length of Stay Estimated LOS: Convalescent Care Less Than 30 days Type of Care Needed: Skilled Rehab Potential: Fair Prognosis: Fair - Additional Orders/Day of Discharge H&P will serve as current which was dated: 08/19/19 Day of Discharge: 08/22/19 - Dietary and Speech Recommendations Dietitian Recommendations/Changes: Rec continue ONS Ensure Enlive 120 ml PO 4x/day at [facility]. Will provide pt Magic Cup at L&D to promote PO intake. - Follow Up Care Primary Care Physician: Juan Story MD [Primary Care Provider] - Please follow up with your Primary Care Physician in: 1 WEEK. Please Follow Up With: Valeri Blankenship MD When: 4 WEEKS.
--- NOTE | 2019-08-22 10:14 | CT_ITS ---
STUDY: CT BRAIN WITHOUT CONTRAST REASON FOR EXAM: Male, 83 years old. Altered mental status. Atrial fibrillation. RADIATION DOSAGE (If Supplied By Facility): CTDIvol = ( 44.99 ) mGy, DLP = ( 762.36 ) mGycm TECHNIQUE: Transaxial CT imaging of the brain was performed without administration of intravenous contrast material. Individualized dose optimization techniques were used for this CT. COMPARISON: Comparison is made with prior study dated August 19, 2019. FINDINGS: Normal soft tissue structures. Normal calvarium. There is moderate cerebral atrophy with widening of the extra-axial spaces and ventricular dilatation. There are areas of decreased attenuation within the white matter tracts of the supratentorial brain, consistent with microvascular disease changes. Stable focal encephalomalacia in the medial aspect of the left cerebellar hemisphere. Normal basal ganglia and thalami. Normal brainstem. Normal cerebellum. There is no intracranial hemorrhage. There are no findings of an acute ischemic infarction. Atherosclerotic calcification of the cavernous portions of the internal carotid arteries bilaterally. Normal visualized paranasal sinuses. CT/Brain/Head without Contrast IMPRESSION: Chronic involutional changes of the brain. Stable examination. Electronically Signed: Will Lincoln, at 13:45 EST , Service support ,
[2019-08-22] MEDS: APIXABAN 5 MG TABLET PO (10:19)
[2019-08-22] MEDS: Memantine Hydrochloride 5 MG Tablet PO (10:19)
--- NOTE | 2019-08-22 11:25 | CASEMGMT ---
Received phone call from Porsche at [facility] and she received pre-cert for patient. RUTHIE faxed orders to [facility]. Completed convalescent on HENS. Called [facility] and arranged for patient to get picked up at 1p via cot due to his dementia. RUTHIE notified RN, special education secretary, ore charger, Porsche at [facility], and patient's , Indira. Plan: d/c to [facility] under skilled level of care on a convalescent stay. [facility] transported patient via cot due to dementia. Linda BILLINGS ASSEMBLY WORKER
--- NOTE | 2019-08-22 12:09 | PHA.DC.MR ---
Pharmacy Service has performed discharge medication reconciliation for this patient. Home Medications Finasteride 5 mg PO QHS 05/15/19 Memantine HCl 5 mg PO QHS 05/15/19 Metoprolol(XL)Succ [Toprol Xl (Beta Lise)] 25 mg PO DAILY 05/15/19 Paroxetine HCl 20 mg PO QHS 06/17/19 Apixaban [Eliquis] 5 mg PO BID #90 tab 08/22/19 Atorvastatin Calcium [Lipitor] 40 mg PO QHS #90 tab 08/22/19 The patient's discharge medication list was reviewed for discrepancies and discrepancies were resolved.
--- NOTE | 2019-08-22 12:35 | NURSING ---
CALLED REPORT TO AGA AT [facility]. NO QUESTIONS.
--- NOTE | 2019-08-22 12:43 | PCM.PN.NEU ---
Patient Problems: Active and Suspected Problems AMS (altered mental status) (Acute) Stroke (Acute) Subjective: No issues overnight. Eliquis 5 mg p.o. twice daily started. Patient tolerating medication well. CT head repeat no hemorrhagic transformation. - Physical Exam Vitals/I&O's: Vital Signs Temp Pulse Resp BP Pulse Ox 98.1 F 84 18 95/66 96 08/22/19 09:53 08/22/19 10:11 08/22/19 09:53 08/22/19 09:53 08/22/19 09:53 Oxygen Delivery Method Room Air Weight: 78.1 kg Body Mass Index (BMI) 24.7 Finger Stick Blood Glucose 109 Intake and Output for Last 24 Hours 08/20/19 08/21/19 08/22/19 23:59 23:59 23:59 Intake Total 890 / 890 700 / 700 240 / 240 Output Total 1750 / 1750 575 / 575 250 / 250 Balance -860 / -860 125 / 125 -10 / -10 General: Alert HEENT: Normocephalic Neck: Supple Lungs: Normal air movement Cardiovascular: Normal S1, Normal S2 Abdomen: Bowel Sounds Present Extremities: No cyanosis Neurological: - - Conscious, alert, AOA x2, CN II to XII grossly intact at present except left homonymous hemianopia, power 5/5 right upper and lower extremities, -5/5 left UE/5/5 left LE, plantars B/L flexor, no pronator drift, no sensory loss, no cerebellar signs, gait deferred, reflexes + B/L B/S/T/K/A, No NR, fundus not visualized, NIHSS 3 at present, mRS 0 at baseline Psych/Mental Status: Normal Affect Current Medications Acetaminophen (Tylenol) 650 mg PO Q6H PRN PRN PRN Reason: Pain Score 1-3/Temp > 100.7 F Apixaban (Eliquis) 5 mg PO BID [facility] Last Admin: 08/22/19 10:19 Dose: 5 mg Documented by: Atorvastatin Calcium (Lipitor) 40 mg PO QHS [facility] Last Admin: 08/21/19 22:09 Dose: 40 mg Documented by: Finasteride (Proscar) 5 mg PO QHS [facility] Last Admin: 08/21/19 22:10 Dose: 5 mg Documented by: Memantine (Namenda) 5 mg PO BID [facility] Last Admin: 08/22/19 10:19 Dose: 5 mg Documented by: Metoprolol Succinate (Toprol Xl (Beta Lise)) 25 mg PO DAILY [facility] Last Admin: 08/22/19 10:11 Dose: Not Given Documented by: Nutritional Formula (Lactose Free) (Ensure Enlive) 120 ml PO 4X/DAY [facility] Last Admin: 08/22/19 10:18 Dose: 120 ml Documented by: Paroxetine HCl (Paxil) 20 mg PO QHS [facility] Last Admin: 08/21/19 22:10 Dose: 20 mg Documented by: STROKE Vital Signs/Narrative: Vital Signs Temp Pulse Resp BP Pulse Ox 08/22/19 10:11 84 08/22/19 09:53 98.1 F 90 18 95/66 96 Medical Necessity - Tobacco Use Smoking Status: Never smoker Tobacco Use: Non-smoker Assessment/Plan All Active Problems AMS (altered mental status) (Acute) Stroke (Acute) The patient is a 83 year old M PMH HTN, history of stroke, dementia, BPH admitted with strokelike symptoms. History is obtained from the patient as well as medical records. Per documentation patient was admitted with altered mental status, vision changes, slurred speech and left facial droop. Per ED documentation [facility] telestroke was consulted and patient was deemed not to be TPA candidate as patient had an unknown onset of symptoms. ED documentation NIHSS on admission was 9. Per documentation patient was having difficulty in seeing, had unsteady gait and confusion when he woke up yesterday 08/19/2019 in the morning, and also per documentation had reported slurred speech and left facial droop at the time. 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 Per patient he lives with his , does not drive, may use cane/walker to ambulate, denies any frequent falls, and does not take aspirin at baseline. At present patient is AOA x2. T head done on admission reported to show focal encephalomalacia in the medial aspect of the right cerebellar hemisphere, CTA head/neck reported not to show any hemodynamically significant stenosis or occlusion. UA negative. 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 [id number] VASc score of atleast 5. Bleeding risks discussed in detail. -Lipitor 40 mg PO q hs -Repeat CT this morning (08/22/19) (done after starting Eliquis) no hemorrhagic transformation- await radiology read -MRI brain without contrast reviewed -CTA head/neck no hemodynamically significant stenosis or occlusion -HbA1c 5.8, LDL 88 -TTE-EF 65%, severely dilated LA, no PFO -30-day event recorder on discharge -Stroke risk factors discussed and stroke education provided -Frequent neuro checks -FDC goal BP < 130/80 mmHg, goal LDL < 70 and goal Hba1c < 7% -On Memantine for dementia -PT/OT/ST -GI/DVT prophylaxis -Fall precautions -Further medical management per hospitalist team -Please call with questions if any -Follow-up with neurology in 4 weeks -Thank you for allowing us to participate in patient's care and management This note has been generated using [employer] dictation software. It may contain incorrect words, spellings and punctuation that were not noted in the review of the note prior to signing
--- NOTE | 2019-08-22 13:08 | CASEMGMT ---
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 SW notified patient's when she came to [facility] as well as RN, and left a message for Porsche at [employer]. Linda [employer]
--- NOTE | 2019-08-22 15:54 | DS.PCM_ITS ---
Discharge Date and Diagnosis Date of Admission: 08/19/19 Date of Discharge: 08/22/19 - Primary Discharge Diagnosis Active and Suspected Problems #1 acute right MCA infarct involving the right parietal region, likely embolic. #2 chronic atrial fibrillation. - Secondary Discharge Diagnosis Chronic Problems Dementia (Chronic) BPH (benign prostatic hyperplasia) (Chronic) Hypertension (Chronic) Hospital Course and Treatment Imaging Results: 08/22/19 10:14 CT Head [Brain/Head without Contrast] [CT] Urgent Clinical Impression(s) from Imaging Studies Brain CT 08/19/19 14:24 IMPRESSION: Chronic involutional changes of the brain. No acute abnormality is seen. N.B. : The above information has been verbally conveyed by Will Lincoln to Dr Arreola on 08/19/2019 14:41:24 (ET). Electronically Signed: Will Lincoln, at 14:42 EST , Service support , ADDENDUM: 08/19/19 1449 IMPRESSION: Chronic involutional changes of the brain. No acute abnormality is seen. N.B. : The above information has been verbally conveyed by Will Lincoln to Dr Arreola on 08/19/2019 14:41:24 (ET). Electronically Signed: Will Lincoln, at 14:42 EST , Service support , Chest X-Ray 08/19/19 14:36 IMPRESSION: Stable increased markings at the right lung base. Electronically Signed: Will Lincoln, at 15:37 EST , Service support , Head/Neck CTA 08/19/19 14:37 IMPRESSION: Calcific plaques at the origin of the right and left internal carotid artery causing less than 50% narrowing. Electronically Signed: Will Lincoln, at 16:00 EST , Service support , Brain MRI 08/20/19 09:26 IMPRESSION: Acute right parietal infarct. Chronic left occipital infarct. Moderate chronic microvascular ischemic changes. Electronically Signed: River Flynn MD at 15:17 EST Tel , Service support , ADDENDUM: 08/20/19 1532 IMPRESSION: Acute right parietal infarct. Chronic left occipital infarct. Moderate chronic microvascular ischemic changes. N.B. : The above information has been verbally conveyed by River Flynn MD to Dr. Tori Dewitt MD, on 08/20/2019 15:25:48 (ET). Electronically Signed: River Flynn MD at 15:17 EST Tel , Service support , Brain CT 08/22/19 10:14 IMPRESSION: Chronic involutional changes of the brain. Stable examination. Electronically Signed: Will Lincoln, at 13:45 EST , Service support , Dr. Martínez, neurology. Operations: None Procedures: 2-D Echocardiogram, EKG Summary of Care Provided: Patient seen and examined on the day of discharge and appeared to be stable to be discharged to residential facility. Apart from the affected vision on the left visual field, no other symptoms or complaints. His vital signs are stable. Patient was started on Eliquis for anti-coagulation and repeat CT scan brain showed no evidence of intracerebral bleed. This is an 83 years old male patient presented to the emergency department because of change in mental status, change in vision and he was found to have acute right MCA infarct affecting the right parietal region. Upon arrival to ED, CT scan brain done showed no acute infarct. His EKG revealed atrial fibrillation which turned to be chronic and patient's family aware of it. CTA of the head and neck revealed calcified plaques at the origin of the right and left internal carotid arteries causing less than 50% stenosis. MRI brain done and revealed the acute right parietal infarct as well as chronic left occipital infarct. 2D echocardiogram revealed ejection fraction of 65%, severely enlarged left and right atrium, bubble contrast study negative for [id number] shunt and patient appeared to be in atrial fibrillation. Neurology consulted and after discussion, we decided to start patient on anticoagulation because this stroke is likely embolic secondary to atrial fibrillation. Patient was started on Eliquis 5 mg p.o. twice daily. After patient received 2 doses of Eliquis, CT scan brain performed and showed no evidence of intracerebral bleed. Patient discharged to residential facility in a stable medical condition, discharged on Eliquis and statins, continued on his previous home medications including finasteride, memantine, metoprolol and paroxetine, plan to follow-up with with neurology in 4 weeks, follow-up with PCP in 1 week. - Physical Exam Vitals/I&O's: Vital Signs Temp Pulse Resp BP Pulse Ox 97.8 F 111 H 18 102/62 98 08/22/19 13:50 08/22/19 13:50 08/22/19 13:50 08/22/19 13:50 08/22/19 13:50 Oxygen Delivery Method Room Air Weight: 172 lb 2.896 oz Body Mass Index (BMI) 24.7 Finger Stick Blood Glucose 109 Intake and Output for Last 24 Hours 08/20/19 08/21/19 08/22/19 23:59 23:59 23:59 Intake Total 890 / 890 700 / 700 960 / 960 Output Total 1750 / 1750 575 / 575 475 / 475 Balance -860 / -860 125 / 125 485 / 485 General: Alert, Cooperative, No apparent distress HEENT: Atraumatic, PERRLA, EOMI, Normocephalic, - - Left hemianopsia. Oral: Moist Mucosa, No Gingival or Mucosal Lesions/ Ulcerations Neck: Supple, No JVD, Negative Carotid Bruits, Trachea Midline, Thyroid Normal Size and Texture Lungs: Clear to auscultation, Normal air movement, No rhonchi, No wheeze, No rales, Diminished Cardiovascular: Normal S1, Normal S2, PMI Normal, Irregular Rate Abdomen: Bowel Sounds Present, Soft, Non Tender, Non-Distended, No Hepato- splenomegaly Extremities: No clubbing, No cyanosis, No edema Skin: No rashes, No breakdown Lymphatic: No Cervical, Supraclavicular, or Inguinal Adenopathy Neurological: Cranial nerves II-XII grossly intact - Apart from left hemianopsia., Motor Exam 5/5 strength throughout Psych/Mental Status: Normal Affect, Appropriate Current Medications Acetaminophen (Tylenol) 650 mg PO Q6H PRN PRN PRN Reason: Pain Score 1-3/Temp > 100.7 F Apixaban (Eliquis) 5 mg PO BID [facility] Last Admin: 08/22/19 10:19 Dose: 5 mg Documented by: Atorvastatin Calcium (Lipitor) 40 mg PO QHS [facility] Last Admin: 08/21/19 22:09 Dose: 40 mg Documented by: Finasteride (Proscar) 5 mg PO QHS [facility] Last Admin: 08/21/19 22:10 Dose: 5 mg Documented by: Memantine (Namenda) 5 mg PO BID [facility] Last Admin: 08/22/19 10:19 Dose: 5 mg Documented by: Metoprolol Succinate (Toprol Xl (Beta Lise)) 25 mg PO DAILY [facility] Last Admin: 08/22/19 10:11 Dose: Not Given Documented by: Nutritional Formula (Lactose Free) (Ensure Enlive) 120 ml PO 4X/DAY [facility] Last Admin: 08/22/19 15:18 Dose: Not Given Documented by: Paroxetine HCl (Paxil) 20 mg PO QHS [facility] Last Admin: 08/21/19 22:10 Dose: 20 mg Documented by: Home Medications: Medications to take at Discharge Finasteride 5 mg PO QHS 05/15/19 Memantine HCl 5 mg PO QHS 05/15/19 Metoprolol(XL)Succ [Toprol Xl (Beta Lise)] 25 mg PO DAILY 05/15/19 Paroxetine HCl 20 mg PO QHS 06/17/19 Apixaban [Eliquis] 5 mg PO BID #90 tab 08/22/19 Atorvastatin Calcium [Lipitor] 40 mg PO QHS #90 tab 08/22/19 Following Prescrptions Were Given to Patient: Apixaban [Eliquis] 5 mg PO BID #90 tab Prescription Printed Atorvastatin Calcium [Lipitor] 40 mg PO QHS #90 tab Prescription Printed Primary Care Physician: Juan Story MD [Primary Care Provider] - Please follow up with your Primary Care Physician in: 1 WEEK. Please Follow Up With: Valeri Martínez MD When: 4 WEEKS. Disposition: Long Term facility Minutes spent on discharge:: 33 Patient Condition:: Stable Medical Necessity - Tobacco Use Smoking Status: Never smoker Tobacco Use: Non-smoker Meaningful Use Info Meaningful Use Diagnoses (Choose all that apply): None applicable - CVA Therapy Assessed for PT,OT and/or ST?: Yes - Ischemic Stroke Antithrombotic order at d/c?: No Reason antithrombotic not ordered: Treatment not Indicated Dx of Atrial fib/flutter?: Yes Anticoagulant at discharge?: Yes Statins at discharge?: Yes Primary Dx Acute Ischemic CVA?: Yes IV tPA ordered during stay?: No Reason IV t-PA not ordered: Treatment not Indicated Code Visit Inpatient E&M: 42402 Disch Hosp
== END 2019-08-22 18:15 | disposition skilled nursing facility (03) | DRG 65 ==
LOC: ED 15:09 → PCU 17:53
PROVIDERS: Nurse Practitioner Family; Psychiatry & Neurology Neurology; Admitting Provider Internal Medicine; Emergency Provider Emergency Medicine; Family Provider Family Medicine; PCP Family Medicine; Visit Provider Hospitalist
DX: I63.411 Cerebral infarction due to embolism of right middle cerebral artery (principal); I48.20 Chronic atrial fibrillation, unspecified; Z66 Do not resuscitate; F32.9 Major depressive disorder, single episode, unspecified; N40.0 Benign prostatic hyperplasia without lower urinary tract symptoms; I10 Essential (primary) hypertension; Z23 Encounter for immunization; F03.90 Unspecified dementia, unspecified severity, without behavioral disturbance, psychotic disturbance, mood disturbance, and anxiety; I65.23 Occlusion and stenosis of bilateral carotid arteries; R29.709 NIHSS score 9; R47.81 Slurred speech; R29.810 Facial weakness; H53.462 Homonymous bilateral field defects, left side
CPT/HCPCS: 36415; 70450; 70496; 70498; 70551; 71045; 80048; 80061; 81001; 82962; 83036; 84484; 85025; 85610; 85730; 92610; 93005; 93306; 97163; 97166; 97530; 97802; 99284; G0008; Q9967; 90686; A4216

== ENCOUNTER 2019-10-11 23:50 | Emergency (ER) | payer MEDICARE, SELFPAY ==
[2019-08-22 11:03] VITALS: BMI 24.7
[2019-10-11 23:52] VITALS: BP 132/92; PULSE 107; RESP 18; TEMP 36.8; O2SAT 99; BMI 24.0
[2019-10-12] VITALS (12 sets, daily range): BP systolic 111–136; BP diastolic 70–74; PULSE 74–91; RESP 12–18; O2SAT 95–99
--- NOTE | 2019-10-12 00:07 | EKG12_ITS ---
Test Reason : [facility] [place] Blood Pressure : / mmHG Vent. Rate : 077 BPM Atrial Rate : 091 BPM P-R Int : 000 ms QRS Dur : 072 ms QT Int : 382 ms P-R-T Axes : 000 055 -01 degrees QTc Int : 432 ms Atrial fibrillation Borderline Low Voltage QRS (Limb Leads) Confirmed by ALFONZO COMER, CINDY ([id number]), writer editor JEAN-PAUL ALEXANDER ([id number]) on 10/20/2019 10:38:50 AM Referred By: JOE Confirmed By:CINDY MEJÍA MD
--- NOTE | 2019-10-12 00:07 | CT_ITS ---
STUDY: CT BRAIN WITHOUT CONTRAST REASON FOR EXAM: Male, 83 years old. CHANGE IN MENTAL STATUS. Hx of HTN, dementia and BPH RADIATION DOSAGE (If Supplied By Facility): CTDIvol = ( 44.99 ) mGy, DLP = ( 812.98 ) mGycm TECHNIQUE: Transaxial CT imaging of the brain was performed without administration of intravenous contrast material. Individualized dose optimization techniques were used for this CT. COMPARISON: 08/22/2019 FINDINGS: Normal soft tissue structures. Normal calvarium. There is moderate cerebral atrophy with widening of the extra-axial spaces and ventricular dilatation. There are areas of decreased attenuation within the white matter tracts of the supratentorial brain, consistent with microvascular disease changes. There are old infarctions in the right middle cerebral artery territory and in the left posterior cerebral artery. Normal basal ganglia and thalami. Normal brainstem. Normal cerebellum. There is no intracranial hemorrhage. There are no findings of an acute ischemic infarction. Normal visualized paranasal sinuses. CT/Brain/Head without Contrast IMPRESSION: Chronic involutional changes of the brain. There are old infarctions in the right middle cerebral artery territory and in the left posterior cerebral artery. Electronically Signed: Cyril Hunter, at 1:42 EST Tel , Service support ,
--- NOTE | 2019-10-12 00:15 | RAD_ITS ---
STUDY: X-RAY CHEST REASON FOR EXAM: Male, 83 years old. AMS TECHNIQUE: Single AP portable view of the chest. COMPARISON: 08/19/2019 FINDINGS: The lungs are clear and expanded. There is no demonstrated pleural abnormality. Normal size heart. Normal mediastinum and david. Normal visualized pulmonary arteries. Normal visualized aortic arch and descending thoracic aorta. Normal visualized thoracic spine. There is degenerative osteoarthritis of the bilateral shoulders. There is no demonstrated abnormality of the visualized soft tissue structures of the upper abdomen. RAD/Chest 1 View (Portable) IMPRESSION: Degenerative changes, as described above. No demonstrated acute cardiopulmonary process. Electronically Signed: Cyril Hunter, at 1:40 EST Tel , Service support ,
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
[2019-10-12 00:27] LABS: Absolute Lymphocyte Count 1.91 X10^3/uL (0.83-4.51); Absolute Neutrophil Count 4.6 X10^3/uL (2.0-7.7); Basophil# 0.03 X10^3/uL; Basophil% 0.4 % (0-1); Eosinophil# 0.08 X10^3/uL; Eosinophils% 1.1 % (0-5); Hemoglobin 12.6 g/dL (13.0-16.5); Lymphocyte # 1.91 X10^3/ul (4.0); Lymphocyte % 25.9 % (19-41); Mean Corp Hgb Conc 33.2 g/dL (32-36); Mean Corpuscular Volume 93.4 fL (80-94); Mean Platelet Vol. 9.1 fl (6.2-12.0); Monocyte# 0.74 X10^3/uL; NRBC Flagged by Analyzer 0 % (0-5); Neutrophil # 4.59 X10^3/uL (2.7-7.7); Neutrophil % 62.3 % (47-70); Platelet Count 212 K/mm3 (150-450); RBC Distribution Width CV 13.3 % (11.6-14.6); RBC Distribution Width SD 45.7 fl (35.1-43.9); Red Blood Count 4.07 M/mm3 (4.6-6.2); White Blood Count 7.4 K/mm3 (4.4-11.0)
[2019-10-12 00:40] LABS: Anion Gap 5 (5-15); BUN 10 mg/dL (7-18); Calcium,Total 8.7 mg/dL (8.5-10.1); Chloride 109 mmol/L (98-107); Creatinine, Serum 0.91 mg/dL (0.70-1.30); EST Glomerular Filtration Rate 85 mL/min (>60); Est Glom Filt Rate - Afr Amer 102 mL/min (>60); Estimated Creatinine Clearance 64.36 ml/min; Glucose 116 mg/dL (74-106); Potassium 3.6 mmol/L (3.5-5.1); Sodium Level 141 mmol/L (136-145)
[2019-10-12 00:45] LABS: Alcohol, Blood (Medical)-Serum < 3.0 mg/dL
[2019-10-12 04:11] LABS: Bacteria 0 SEEN /hpf (None Seen); Mucous, Urine 0 SEEN /hpf (<or=2+); Squamous Epithelial Cells - UA 0 SEEN /hpf (0-5)
[2019-10-12 04:24] LABS: Color, Urine Yellow (Yellow); Glucose, Dipstick NEGATIVE (Normal); Ketone-Dipstick Negative (Negative); Leukocyte Esterase-Dipstick Negative /ul (Negative); Nitrite-Dipstick Negative (Negative); Occult Blood-Urine 25 /ul (Negative); Protein-Dipstick Negative (Negative); Urine Bilirubin Dipstick Negative (Negative); Urine Clarity Sl Cldy (Clear); Urine Urobilinogen Normal (Normal)
[2019-10-12 04:27] LABS: Red Blood Cells-Urine 0-5 SEEN /hpf (0-5); White Blood Cells 0-5 SEEN /hpf (0-5)
[2019-10-12 04:30] LABS: Amphetamine Urine VISTA NEGATIVE (<1000 ng/mL); Barbiturate Urine VISTA NEGATIVE (< 200 ng/mL); Benzodiazepine Urine VISTA NEGATIVE (< 200 ng/mL); Cocaine Urine VISTA NEGATIVE (< 300 ng/mL); Ecstacy Urine VISTA NEGATIVE (< 500 ng/mL); Methadone Urine VISTA NEGATIVE (< 300 ng/mL); PCP Urine VISTA NEGATIVE (< 25 ng/mL); THC Urine VISTA NEGATIVE (< 50 ng/mL); Vista UDS pH Range 6
--- NOTE | 2019-10-12 04:50 | NURSING ---
TALKED TO ALMAS FROM CRISIS AT [id number]
[2019-10-12] MEDS: QUEtiapine 25 MG Tablet PO (08:35)
--- NOTE | 2019-10-12 09:21 | ED.RN ---
ALMAS WITH CRISIS MADE A REFERRAL TO [facility]
[2019-10-12] MEDS: Haloperidol Lactate 5 MG/ML Vial 2 MG IM (09:28)
--- NOTE | 2019-10-12 13:05 | ED.RN ---
BJ FROM [facility] UNABLE TO REACH SPOUSE FOR PERMISSION TO TRANSFER. THIS RN MADE MULTIPLE ATTEMPTS TO CONTACT SPOUSE, AND AFTER ABOUT 10 PHONE CALLS SPOUSE ANSWERED, INFORMED HER THAT WE WERE TRYING TO REACH HER REGARDING HER AND SHE STATES I KNOW I GOT ALL THE PHONE CALLS. SPOUSE SOUNDED ANNOYED THAT WE WERE CONTACTING HER ABOUT HER .
--- NOTE | 2019-10-12 15:14 | ED.RN ---
called and is upset that pt was transferred to [place]. Attempted to explain to that other facilities that were closer was attempted and he was declined. She was also upset because no one ever called me. Informed her that I and [facility] both made multiple attempts to call her and that in an earlier conversation she acknowledged my attempted phone calls, she responded well I had my phone off I didn't want to be bothered. Advised that Barbara from [facility] had to have talked to her to get her consent to transfer, denies this conversation. Spoke to Barbara and she states that she did talk to the and did get consent to transfer, and that the even was going to give Barbara her granddaughters email to send documents to sign for transfer. seems confused about events, stating that she never talked to counseling center when Ezequiel from [facility] states he did talk to her. Call placed to Ezequiel and Barbara about 's displeasure with course of events.
== END 2019-10-12 14:43 ==
PROVIDERS: Emergency Provider Emergency Medicine; Family Provider Family Medicine; PCP Family Medicine
DX: R45.6 Violent behavior (principal); F03.90 Unspecified dementia, unspecified severity, without behavioral disturbance, psychotic disturbance, mood disturbance, and anxiety; F05 Delirium due to known physiological condition; I10 Essential (primary) hypertension; I48.91 Unspecified atrial fibrillation; N40.0 Benign prostatic hyperplasia without lower urinary tract symptoms; R29.6 Repeated falls; Z79.01 Long term (current) use of anticoagulants; Z79.899 Other long term (current) drug therapy; Z86.73 Personal history of transient ischemic attack (TIA), and cerebral infarction without residual deficits
CPT/HCPCS: 36415; 70450; 71045; 80048; 80307; 80320; 81001; 85025; 93005; 96372; 99285; P9612; G0480

== ENCOUNTER 2019-11-25 20:15 | Emergency (ER) | payer MEDICARE, SELFPAY ==
[2019-11-25 20:18] VITALS: BP 117/89; PULSE 100; RESP 16; TEMP 36.6; O2SAT 99; BMI 22.4
--- NOTE | 2019-11-25 21:00 | CT_ITS ---
STUDY: CT BRAIN WITHOUT CONTRAST REASON FOR EXAM: Male, 83 years old. Altered mental status. Violent at home today. History of dementia. RADIATION DOSAGE (If Supplied By Facility): CTDIvol = ( 44.99 ) mGy, DLP = ( 745.49 ) mGycm TECHNIQUE: Transaxial CT imaging of the brain was performed without administration of intravenous contrast material. Individualized dose optimization techniques were used for this CT. COMPARISON: October 12, 2019. FINDINGS: Normal soft tissue structures. Normal calvarium. There is mild cerebral atrophy with widening of the extra-axial spaces and ventricular dilatation. There are areas of decreased attenuation within the white matter tracts of the supratentorial brain, consistent with microvascular disease changes. There are remote infarcts of the right posterior parietal lobe and left occipital lobe. Normal basal ganglia and thalami. Normal brainstem. There is mild cerebellar atrophy. There is no intracranial hemorrhage. There are no findings of an acute ischemic infarction. Normal visualized paranasal sinuses. CT/Brain/Head without Contrast IMPRESSION: Chronic involutional changes without evidence of acute intracranial or calvarial abnormality. There is no interval change when compared to the prior study. Electronically Signed: Robin Spaulding DO at 22:08 EST Tel [phone], Service support ,
--- NOTE | 2019-11-25 21:01 | EKG12_ITS ---
Test Reason : MENTAL HEALTH Blood Pressure : / mmHG Vent. Rate : 089 BPM Atrial Rate : 416 BPM P-R Int : 000 ms QRS Dur : 072 ms QT Int : 346 ms P-R-T Axes : 000 072 009 degrees QTc Int : 420 ms Atrial fibrillation Low voltage QRS Septal infarct , age undetermined Abnormal ECG Confirmed by DIANA PRO ([id number]), assistant film editor JEAN-PAUL ALEXANDER ([id number]) on 11/27/2019 9:40:33 AM Referred By: BRITTANY Confirmed By:DIANA PRO
--- NOTE | 2019-11-25 21:02 | ED.VIS.GEN ---
History of Present Illness <Fernando Segovia - Last Filed: 11/26/19 10:51> Informant: Patient, Family Onset: - - 1 year or more Context: Gradual Onset Timing: Intermittent Quality: agitation, angry Location: all over Current Severity: Mild Maximum Severity: Severe Worsened by: interpersonal interactions with family Associated Symptoms: none Narrative: Family brings patient in after an altercation verbally. He was yelling a very agitated and swinging at them but not injuring anyone. This is been going on for a long time according to family, and today was no worse than usual. Is unclear exactly why they came to the ER today but apparently there was a lot of yelling at home. When asked if they have looked into for assisted living, family admits that they have but they cannot afford to put him in assisted living so they have been caring for him at home. They are very frustrated with the agitation he has been having at home. He has been admitted to geropsychiatry in the past for management of this, but when he comes home everything just continues and nothing seems to change. He they deny any obvious signs of an illness recently. They deny any injury or fall or head trauma in the last week, but he did have a couple of accidental falls prior to that without loss of consciousness or presentation to the ER. <AlejandraJorge Alberto - Last Filed: 11/27/19 15:26> Chief Complaint: Mental Health - Past Medical History (1) Chronic constipation Status: Chronic (2) Stroke Status: Chronic (3) BPH (benign prostatic hyperplasia) Status: Chronic (4) Dementia Status: Chronic (5) Hypertension Status: Chronic <Jorge Alberto Roberts - Last Filed: 11/27/19 15:26> Past Medical History <Fernando Segovia - Last Filed: 11/26/19 10:51> Surgical History: - - Left shoulder surgery, cataract surgery. Smoking Status: Never smoker - Family History Maternal Family History: Reports: - - Lived into her 90s, healthy. Denies maternal cardiac history. Paternal Family History: Reports: - - in his 60s from tuberculosis. <Jorge Alberto Roberts - Last Filed: 11/27/19 15:26> - Allergies and Home Meds Allergies/Adverse Reactions: Allergies No Known Allergies Allergy (Verified 11/25/19 20:33) Primary Care Physician: Juan Story MD [Primary Care Provider] - Review of Systems ROS: Unable to Obtain - limited due to dementia General: Denies: Chills, Fever, Sweats Eyes: Denies: Visual changes - bilaterally, Diplopia ENT: Denies: Bilateral ear pain, Rhinorrhea, Sore throat Cardiovascular: Denies: Chest pain, Palpitations Respiratory: Denies: Dyspnea, Cough Gastrointestinal: Reports: Constipation. Denies: Abdominal pain, Nausea, Vomiting Genitourinary: Denies: Dysuria, Hematuria, Frequency Musculoskeletal: Denies: Neck pain, Back pain, Extremity Pain Skin: Denies: Rash, Wounds Neurological: Denies: Headache, Weakness, Numbness <Jorge Alberto Roberts - Last Filed: 11/27/19 15:26> Physical Exam Vital Signs/Narrative: Vital Signs Resp 11/26/19 07:00 14 11/26/19 06:27 12 <Fernando Segovia - Last Filed: 11/26/19 10:51> Vital Signs/Narrative: Vital Signs Temp Pulse Resp BP Pulse Ox 11/25/19 20:18 97.9 F 100 16 117/89 H 99 Inital Vital Signs reviewed: Yes General: Well nourished, Well developed, No Acute Distress Head: Normocephalic, Atraumatic Eyes: Perrl, EOMI ENT: Moist mucous membranes, No rhinorrhea Neck: Supple, Nontender Cardiovascular: Regular rate, Regular rhythm, No murmurs Respiratory: No distress, CTA bilaterally, Chest nontender Abdomen: Soft, Nontender, Nondistended, Normal bowel sounds Back: Nontender, Normal Inspection Extremities: Nontender, No edema Skin: Normal color, No rash Neurological: Alert, Cranial nerves II-XII grossly intact, Normal Strength, Normal Sensation, Confused - at baseline per family Psychological: Normal affect, Normal Mood. Negative for: Agitated - coopertive during exam <Jorge Alberto Roberts - Last Filed: 11/27/19 15:26> Diagnostic/Tx/Re-eval - Medical Decision Making The patient was seen and evaluated by crisis. He did require 1 more dose of Geodon. His states that she does not want him placed. She states that every time that he ends up placed, he ends up coming back and still the same. She wants to take him home. The patient is more appropriate. At this point, based on the 's wishes and the patient's advanced dementia I do feel that this is a reasonable approach. <Fernando Segovia - Last Filed: 11/26/19 10:51> Impressions Brain CT 11/25/19 21:00 IMPRESSION: Chronic involutional changes without evidence of acute intracranial or calvarial abnormality. There is no interval change when compared to the prior study. Electronically Signed: Robin Spaulding DO at 22:08 EST Tel [phone], Service support , Chest X-Ray 11/25/19 21:44 IMPRESSION: No acute cardiopulmonary disease or major interval change. Electronically Signed: Robin Spaulding DO at 22:28 EST Tel [phone], Service support , 11/25/19 21:00 Brain/Head without Contrast [CT] Stat 11/25/19 21:44 Chest PA and Lateral [RAD] Stat Laboratory Tests 11/25/19 11/25/19 11/25/19 Range/Units 22:31 21:20 21:20 WBC 6.9 (4.4-11.0) K/mm3 RBC 3.40 L (4.6-6.2) M/mm3 Hgb 10.5 L (13.0-16.5) g/dL Hct 32.7 L (40-54) % MCV 96.2 H (80-94) fL MCH 30.9 (27.0-32.0) pg MCHC 32.1 (32-36) g/dL RDW Std Deviation 46.9 H (35.1-43.9) fl RDW Coeff of Darby 13.3 (11.6-14.6) % Plt Count 277 (150-450) K/mm3 MPV 9.1 (6.2-12.0) fl Immature Gran % (Auto) 0.300 (0.0-0.9) % Neut % (Auto) 61.1 (47-70) % Lymph % (Auto) 24.9 (19-41) % Nance % (Auto) 10.8 H (0-10) % Eos % (Auto) 2.5 (0-5) % Baso % (Auto) 0.4 (0-1) % Absolute Neuts (auto) 4.2 (2.0-7.7) X10^3/uL Absolute Lymphs (auto) 1.71 (0.83-4.51) X10^3/uL Nucleated RBC % 0 (0-5) % Sodium 142 (136-145) mmol/L Potassium 3.7 (3.5-5.1) mmol/L Chloride 107 (98-107) mmol/L Carbon Dioxide 33.0 H (21.0-32.0) mmol/L Anion Gap 2 L (5-15) BUN 11 (7-18) mg/dL Creatinine 0.85 (0.70-1.30) mg/dL Estim Creat Clear Calc 68.54 ml/min Est GFR (MDRD) Af Amer 110 (>60) mL/min Est GFR (MDRD) Non-Af 91 (>60) mL/min BUN/Creatinine Ratio 12.9 (10-20) RATIO Glucose 97 (74-106) mg/dL Calcium 8.6 (8.5-10.1) mg/dL Total Bilirubin 0.40 (0.20-1.00) mg/dL AST 14 L (15-37) U/L ALT 13 L (16-61) U/L Alkaline Phosphatase 81 (45-117) U/L Troponin I < 0.015 (<0.045) ng/mL Total Protein 7.1 (6.4-8.2) g/dL Albumin 2.8 L (3.2-5.0) g/dL Globulin 4.3 H (2.2-4.2) g/dL Albumin/Globulin Ratio 0.7 L (0.9-2.4) RATIO Urine Color Yellow (Yellow) Urine Clarity Clear (Clear) Urine pH 8.0 (5.0 - 8.0) Ur Specific [place] 1.015 (1.002-1.030) Urine Protein Negative (Negative) mg/dl Urine Glucose (UA) Normal (Normal) mg/dl Urine Ketones Negative (Negative) mg/dl Urine Occult Blood Negative (Negative) /ul Urine Nitrite Negative (Negative) Urine Bilirubin Negative (Negative) mg/dL Urine Urobilinogen Normal (Normal) mg/dl Ur Leukocyte Esterase Negative (Negative) /ul Urine RBC 0 SEEN (0-5) /hpf Urine WBC 0 SEEN (0-5) /hpf Ur Squamous Epith Cells 0 SEEN (0-5) /hpf Urine Bacteria 0 SEEN (None Seen) /hpf Urine Mucus 0 SEEN (<or=2+) /hpf - Rhythm Strip Rhythm Strip: A-fib Rate: 89 Ectopy: None - EKG Initial EKG Interpretation: No Acute Injury Pattern, Atrial Fibrillation Prior: Unchanged - Medical Decision Making I had social work see this patient. He medically is cleared and has no acute medical reason to justify medical admission. The is looking for a way to get him out of the house. They are frustrated with him at home but she states that they cannot afford to put him in assisted living. Social work knows this patient and family well because they have been here multiple times over the past 5 years with the exact same issues. He has been sent to geropsychiatry facility in the past for stabilization and then discharged home because they do not want to pay to have him in a skilled nursing, assisted living, or respite care which is been given to them his option in the past as well. At this time when presented with her options, they prefer him be stabilized in geropsychiatry because these last 2 days have been worse. lasting floorworker is no longer here, awaiting crisis for further evaluation and placement. <Jorge Alberto Roberts - Last Filed: 11/27/19 15:26> ED Disposition <Fernando Segovia - Last Filed: 11/26/19 10:51> <Jorge Alberto Robrets - Last Filed: 11/27/19 15:26> - Plan for ED Patient: Disposition: Home or Assisted Living Diagnosis: Dementia with behavioral disturbance Instructions: DEMENTIA, Any Type Referrals: Juan Story MD [Primary Care Provider] -
[2019-11-25 21:36] LABS: Absolute Lymphocyte Count 1.71 X10^3/uL (0.83-4.51); Absolute Neutrophil Count 4.2 X10^3/uL (2.0-7.7); Basophil# 0.03 X10^3/uL; Basophil% 0.4 % (0-1); Eosinophil# 0.17 X10^3/uL; Eosinophils% 2.5 % (0-5); Hematocrit 32.7 % (40-54); Hemoglobin 10.5 g/dL (13.0-16.5); Lymphocyte # 1.71 X10^3/ul (4.0); Lymphocyte % 24.9 % (19-41); Mean Corp Hgb Conc 32.1 g/dL (32-36); Mean Corpuscular Hgb 30.9 pg (27.0-32.0); Mean Corpuscular Volume 96.2 fL (80-94); Mean Platelet Vol. 9.1 fl (6.2-12.0); Monocyte# 0.74 X10^3/uL; Monocyte% 10.8 % (0-10); NRBC Flagged by Analyzer 0 % (0-5); Neutrophil % 61.1 % (47-70); Platelet Count 277 K/mm3 (150-450); RBC Distribution Width CV 13.3 % (11.6-14.6); RBC Distribution Width SD 46.9 fl (35.1-43.9); White Blood Count 6.9 K/mm3 (4.4-11.0)
--- NOTE | 2019-11-25 21:44 | RAD_ITS ---
STUDY: X-RAY CHEST REASON FOR EXAM: Male, 83 years old. Confusion. TECHNIQUE: PA and lateral views of the chest. COMPARISON: October 12, 2019. FINDINGS: The lungs are clear and expanded. There is no demonstrated pleural abnormality. Normal size heart. Normal mediastinum and david. Normal visualized pulmonary arteries. Normal visualized aortic arch and descending thoracic aorta. There are diffuse degenerative changes of the visualized thoracic spine. Normal visualized ribs, clavicles, and shoulders. There is no demonstrated abnormality of the visualized soft tissue structures of the upper abdomen. RAD/Chest PA and Lateral IMPRESSION: No acute cardiopulmonary disease or major interval change. Electronically Signed: Robin Spaulding DO at 22:28 EST Tel [phone], Service support ,
[2019-11-25 22:09] LABS: ALB/GLOB Ratio 0.7 RATIO (0.9-2.4); AST(SGOT) 14 U/L (15-37); Alanine Aminotransfer ALT/SGPT 13 U/L (16-61); Albumin, Serum 2.8 g/dL (3.2-5.0); Alkaline Phosphatase 81 U/L (45-117); Anion Gap 2 (5-15); BUN 11 mg/dL (7-18); BUN/Creat Ratio 12.9 RATIO (10-20); Calcium,Total 8.6 mg/dL (8.5-10.1); Chloride 107 mmol/L (98-107); Creatinine, Serum 0.85 mg/dL (0.70-1.30); EST Glomerular Filtration Rate 91 mL/min (>60); Est Glom Filt Rate - Afr Amer 110 mL/min (>60); Estimated Creatinine Clearance 68.54 ml/min; Globulin 4.3 g/dL (2.2-4.2); Glucose 97 mg/dL (74-106); Potassium 3.7 mmol/L (3.5-5.1); Protein, Total 7.1 g/dL (6.4-8.2); Sodium Level 142 mmol/L (136-145)
--- NOTE | 2019-11-25 22:20 | CM.ED ---
Social Work Consult: Resources Informant: Patient family request. Met with patient spouse in room. Patient spouse, Indira stating to be overwhelmed with caring for patient at home. Patient diagnosed with Dementia and history of [facility] placement. Indira stating to not want patient to go to a long-term due to they will take my house. This renal social worker educating Indira that they are not able to leave Indira homeless. Indira voicing understanding to this but I want to leave my house for my kids. Active listening and support provided. Indira stating to be aware of how the system works. Indira provided with information on [facility] and is aware of assisted living and optometric aide options along with nursing homes. Indira stating to have an aide set up to start on and plans to private pay for this. Indira stating I don't know what to do. Further active support and listening provided. Indira stating to understand the benefits of patient going to a facility long-term. Explored option of respite stay in an assisted living or long-term until Indira makes final decision. Indira is not wanting to commit to any plan at this time but is not wanting to take patient home. Patient pending medical evaluation. Indira aware that patient will need to qualify for stay in hospital in order for patient to stay the night. Indira not sure what I want. Support provided throughout assessment. Updated Dr. Roberts on assessment. PLAN: Undetermined at this time. Elton Emery MSW, AWA
[2019-11-25 22:42] LABS: Bacteria 0 SEEN /hpf (None Seen); Mucous, Urine 0 SEEN /hpf (<or=2+); Red Blood Cells-Urine 0 SEEN /hpf (0-5); Squamous Epithelial Cells - UA 0 SEEN /hpf (0-5); White Blood Cells 0 SEEN /hpf (0-5)
[2019-11-25 22:44] LABS: Color, Urine Yellow (Yellow); Glucose, Dipstick Normal (Normal); Ketone-Dipstick Negative (Negative); Leukocyte Esterase-Dipstick Negative /ul (Negative); Nitrite-Dipstick Negative (Negative); Occult Blood-Urine Negative /ul (Negative); Protein-Dipstick Negative (Negative); Specific Gravity, Urine 1.015 (1.002-1.030); Urine Bilirubin Dipstick Negative (Negative); Urine Clarity Clear (Clear); Urine Urobilinogen Normal (Normal)
[2019-11-25 23:27] VITALS: BP 112/78; PULSE 90; RESP 16; O2SAT 94
[2019-11-26] MEDS: Haloperidol Lactate 5 MG/ML Vial 2 MG IM (00:35)
[2019-11-26 00:55] VITALS: RESP 16
[2019-11-26 01:03] VITALS: BP 134/101; PULSE 88; RESP 18; O2SAT 93
--- NOTE | 2019-11-26 01:27 | ED.RN ---
[facility] ON SITE
[2019-11-26 02:37] VITALS: RESP 16
--- NOTE | 2019-11-26 04:07 | ED.RN ---
RAUDEL FROM [facility], WORKING ON THIS PT, UNABLE TO REACH FAMILY AT THIS TIME, WILL TYPE REPORT FROM HER OFFICE AND FAX TO US
[2019-11-26 05:01] VITALS: RESP 14
[2019-11-26 06:27] VITALS: RESP 12
[2019-11-26 07:00] VITALS: RESP 14
--- NOTE | 2019-11-26 07:53 | ED.RN ---
BREAKFAST ORDERED. PT INFORMED.
[2019-11-26] MEDS: Ziprasidone IM 20 MG/ML VIAL 10 MG IM (08:03)
--- NOTE | 2019-11-26 09:51 | ED.RN ---
PATIENTS CALLED IN WANTING TO KNOW WHAT WE ARE DOING WITH HER ? I ASKED HER IF SHE SPOKE WITH CRISIS AND SHE SAID YEAH, THEY DON'T KNOW WHAT IS GOING ON WITH HIM EITHER. I CALLED CRISIS
--- NOTE | 2019-11-26 09:58 | ED.RN ---
CALLED CRISIS SHE STATED THAT DOES NOT WANT PLACED ANYWHERE TRANSFERRED CALL TO DR. DOUGHERTY
[2019-11-26] MEDS: Senna/Docusate Sodium 1 Tablet 2 TABLET PO (12:01)
[2019-11-26] MEDS: Magnesium Citrate 300 ML PO (12:01)
== END 2019-11-26 12:07 | disposition home or self-care (01) ==
PROVIDERS: Emergency Provider Emergency Medicine; PCP Family Medicine
DX: F03.91 Unspecified dementia, unspecified severity, with behavioral disturbance (principal); I10 Essential (primary) hypertension; N40.0 Benign prostatic hyperplasia without lower urinary tract symptoms; Z79.899 Other long term (current) drug therapy; Z86.73 Personal history of transient ischemic attack (TIA), and cerebral infarction without residual deficits
CPT/HCPCS: 70450; 71046; 80053; 81001; 84484; 85025; 93005; 96372; 99285; A4216; J3486